=== PATIENT | female | born 1975 | race Caucasian/White ===

== ENCOUNTER 2020-01-18 08:39 | Emergency (ER) | payer OTHER ==
--- OUTSIDE RECORDS SUMMARY | 2020-01-18 08:43 | XMS REPORT | Clinical Summary ---
:1975 Author Organization Formerly [facility] Address [address] [place] [address] Care Team Providers Name Role Phone Aliza Torres MD Primary Care Provider Allergies Active Allergy Reactions Severity Noted Date Comments Nsaids (Non-Steroidal Anti-Inflammatory Anaphylaxis High 0 11/11/2019 Drug) Medications Medication Sig Dispensed Refills Start Date End Date Status omeprazole Take 20 mg by 0 Activ e (PRILOSEC) 20 MG mouth 2 (two) capsule times daily. fexofenadine Take 180 mg by 0 Ac tive (JD) 180 MG mouth daily. tablet famotidine-calcium Take 1 tablet 0 Active carbonate-magnesiu by mouth daily m hydroxide as needed. (PEPCID COMPLETE) 10-800-165 mg chew tab multivit,Ca,iron,m Take by mouth. 0 Active in/FA/nll577 (DAILY ENERGY ORAL) acetaminophen-code Take 1 tablet 0 02 Discontinued ine (TYLENOL #3) by mouth every 0 300-30 mg per 4 (four) hours tablet as needed for Pain. naproxen (MIDOL, Take 220 mg by 0 11/16/19 2 Discontinued NAPROXEN,) 220 MG mouth 2 (two) 0 tablet times daily with breakfast and dinner. docusate sodium Take 1 capsule 20 capsule 0 11/16/2019 02 (COLACE) 100 MG (100 mg total) 0 capsule by mouth 2 (two) times daily for 10 days. HYDROcodone-acetam Take 1 tablet 30 tablet 0 11/16/2019 inophen (NORCO by mouth every 0 5-325) 5-325 mg 4 (four) hours per tablet as needed for Pain for up to 10 days. Max Daily Amount: 6 tablets ondansetron Take 1 tablet 30 tablet 0 11/16/2019 Exp ired (ZOFRAN) 4 MG (4 mg total) by 0 tablet mouth 4 (four) times daily as needed for Nausea for up to 7 days. Active Problems Problem Noted Date Pelvic and perineal pain 11/13/2019 Intra-abdominal and pelvic swelling, mass and lump, un specified site 11/13/2019 S/P ovarian cystectomy 11/13/2019 Comments Yes Encounters Date Type Specialty Care Team Description 11/14/2019 Anesthesia Event Pre-Admission Lawanda Ojeda MD 11/13/2019 Anesthesia Event Carmen Ojeda MD 11/13/2019 Surgery Wes Oliver OOPHORECTOMY MD Lauren 11/13/2019 - Hospital Encounter Wes Oliver S/P ovari an 11/16/2019 MD Lauren cystectomy (Gisselle burrows Dx) 11/13/2019 Travel 11/11/2019 Hospital Encounter Pre-Admission Wes Oliver Testing MD Lauren after 01/17/2019 Social History Tobacco Use Types Packs/Day Years Used Date Former Smoker Smokeless Tobacco: Never Used Comments: quit 2009 Alcohol Use Drinks/Week oz/Week Comments Yes occasional Alcohol Habits Answer Date Recorded How often do you have a drink containing alcohol? Never 11/11/2019 How many drinks containing alcohol do you have on a typical Not asked day when you are drinking? How often do you have six or more drinks on one occasion? No t asked Comments Yes Sex Assigned at Date Recorded Not on file Job Start Date Occupation Industry Not on file Not on file Not on file Travel History Travel Start Travel End No recent travel history available. Last Filed Vital Signs Vital Sign Reading Time Taken Blood Pressure 105/64 11/16/2019 7:38 AM CDT Pulse 78 11/16/2019 7:38 AM CDT Temperature 36.8 C (98.2 F) 11/16/2019 7:38 AM CDT Respiratory Rate 18 11/16/2019 7:38 AM CDT Oxygen Saturation 98% 11/16/2019 7:38 AM CDT Inhaled Oxygen Concentration - - Weight 67.1 kg (148 lb) 11/13/2019 10:52 AM CDT Height 160 cm (5' 3") 11/13/2019 10:52 AM CDT Body Mass Index 26.22 11/13/2019 10:52 AM CDT Plan of Treatment Not on file Procedures Procedure Name Priority Date/Time Associated Comments Diagnosis REPORT OF PROCEDURE - 11/18/2019 1:50 ENDOSCOPY SCAN PM CDT CT SINUS WITHOUT IV Routine 11/15/2019 5:47 Resu lts for this CONTRAST PM CDT procedure are i n the results section. MR BRAIN WITHOUT IV Routine 11/15/2019 11:39 Resu lts for this CONTRAST AM CDT procedure are i n the results section. MRA HEAD WITHOUT IV Routine 11/15/2019 11:39 Resu lts for this CONTRAST AM CDT procedure are i n the results section. CBC W/PLT COUNT & Routine 11/15/2019 8:09 Result s for this AUTO DIFFERENTIAL AM CDT procedure are in the results section. COMPREHENSIVE Routine 11/15/2019 8:09 Results fo r this METABOLIC PANEL AM CDT procedure ar e in the results section. CBC W/PLT COUNT & Routine 11/15/2019 8:09 Result s for this AUTO DIFFERENTIAL AM CDT procedure are in the results section. CT BRAIN WITHOUT IV STAT 11/14/2019 11:06 Resu lts for this CONTRAST PM CDT procedure are i n the results section. TRANSFUSION SERVICE 11/14/2019 5:52 REPORT - SCAN PM CDT CBC W/PLT COUNT & Routine 11/14/2019 5:48 Result s for this AUTO DIFFERENTIAL AM CDT procedure are in the results section. ELECTROLYTE PANEL Routine 11/14/2019 5:48 Result s for this AM CDT procedure are i n the results section. CBC W/PLT COUNT & Routine 11/14/2019 5:48 Result s for this AUTO DIFFERENTIAL AM CDT procedure are in the results section. CYTOLOGY AP Routine 11/13/2019 1:52 Results for this PM CDT procedure are i n the results section. TISSUE EXAM AP Routine 11/13/2019 1:41 Results for this PM CDT procedure are i n the results section. OOPHORECTOMY 11/13/2019 12:30 Intra-abdominal and PM CDT pelvic swelling, mass and lump, unspecified site Pelvic and perineal pain ABORH, MANUAL Routine 11/13/2019 10:41 Results fo r this AM CDT procedure are i n the results section. HCG, SERUM, STAT 11/13/2019 10:41 Results for this QUALITATIVE AM CDT procedure are i n the results section. TRANSFUSION SERVICE 11/12/2019 5:54 REPORT - SCAN PM CDT URINALYSIS WITHOUT Routine 11/11/2019 3:08 Resul ts for this MICROSCOPIC PM CDT procedure are i n the results section. XR CHEST 2 VIEWS Routine 11/11/2019 3:05 Results for this PM CDT procedure are i n the results section. ECG 12-LEAD Routine 11/11/2019 3:00 Results for this PM CDT procedure are i n the results section. TYPE AND SCREEN, Routine 11/11/2019 2:55 Results for this AUTOMATED PM CDT procedure are i n the results section. CBC (HEMOGRAM ONLY) Routine 11/11/2019 2:55 Resu lts for this PM CDT procedure are i n the results section. COMPREHENSIVE Routine 11/11/2019 2:55 Results fo r this METABOLIC PANEL PM CDT procedure ar e in the results section. after 01/17/2019 Results EKG-SCANNED (11/18/2019 1:50 PM CDT) Narrative Performed At This result has an attachment that is no t available. CT sinus without iv contrast (11/15/2019 5:47 PM CDT) Specimen Narrative Performed At FINAL REPORT [facility] EXAM: CT SINUS WITHOUT CONTRAST INDICATION: Unlisted Indication - see co mments TECHNIQUE: Axial CT images are obtained through the paranasal sinuses without intravenous contrast. Coronal an d sagittal reformatted images are provided. DOSE REDUCTION: Dose modulation, iterati ve reconstruction, and/or weight-based adjustment of the mA/kV was utilized to reduce the radiation dose to as low as reasonably a chievable. COMPARISON: None FINDINGS: RIGHT PARANASAL SINUSES: Maxillary sinus is clear. The ostium, in fundibulum, and hiatus semilunaris are clear. The middle meatus is clear.There is opacification of a single anterior ethmo id air cell. The frontal sinus and frontal recess are clear. The posterior ethmoid air cells, sphenoi d chamber and sphenoid ostium are clear. LEFT PARANASAL SINUSES: There is mild mucosal thickening within the maxillary sinus. There is no air-fluid level. The ostium, infundib ulum, and hiatus semilunaris are clear. The middle meatus is clear. The anterior ethmoid air cells are well pneumatized. The frontal sinus and frontal recess are clear. The posterior ethmoid air cells, sphenoi d chamber and sphenoid ostium are clear. Coronal reformatted images demonstrate i ntact appearance of the cribriform plate, fovea ethmoidalis, and anterior skull base. There are bilateral pneumatized middle t urbinates The nasal septum is intact, deviated to the right but without mucosal contact with the inferior turbinate. The re is a 3 mm leftward spur along the inferior nasal septum. The mastoid air cells and middle ear cav ities are clear. Visualized intracranial contents are unr emarkable. Orbits are intact. Temporomandibular joints are normal. IMPRESSION: No evidence of sinusitis. Signed: Luisito Carvalho MD Report Verified Date/Time:11/15/2019 20:07:58 Procedure Note Interface, External Ris In - 11/15/2019 8:11 PM CDT FINAL REPORT EXAM: CT SINUS WITHOUT CONTRAST INDICATION: Unlisted Indication - see co mments TECHNIQUE: Axial CT images are obtained through the paranasal sinuses without intravenous contrast. Coronal an d sagittal reformatted images are provided. DOSE REDUCTION: Dose modulation, iterati ve reconstruction, and/or weight-based adjustment of the mA/kV was utilized to reduce the radiation dose to as low as reasonably a chievable. COMPARISON: None FINDINGS: RIGHT PARANASAL SINUSES: Maxillary sinus is clear. The ostium, in fundibulum, and hiatus semilunaris are clear. The middle meatus is clear. There is opacification of a single anterior ethmo id air cell. The frontal sinus and frontal recess are clear. The posterior ethmoid air cells, sphenoi d chamber and sphenoid ostium are clear. LEFT PARANASAL SINUSES: There is mild mucosal thickening within the maxillary sinus. There is no air-fluid level. The ostium, infundib ulum, and hiatus semilunaris are clear. The middle meatus is clear. The anterior ethmoid air cells are well pneumatized. The frontal sinus and frontal recess are clear. The posterior ethmoid air cells, sphenoi d chamber and sphenoid ostium are clear. Coronal reformatted images demonstrate i ntact appearance of the cribriform plate, fovea ethmoidalis, and anterior skull base. There are bilateral pneumatized middle t urbinates The nasal septum is intact, deviated to the right but without mucosal contact with the inferior turbinate. The re is a 3 mm leftward spur along the inferior nasal septum. The mastoid air cells and middle ear cav ities are clear. Visualized intracranial contents are unr emarkable. Orbits are intact. Temporomandibular joints are normal. IMPRESSION: No evidence of sinusitis. Signed: Luisito Carvalho MD Report Verified Date/Time: 11/15/2019 2 0:07:58 Performing Organization Address City/State/Zipcode Phone Number [facility] MR brain without IV contrast (11/15/2019 11:39 AM CDT) Specimen Narrative Performed At FINAL REPORT [facility] MR, BRAIN, WITHOUT CONTRAST, MR, MRA, BR AIN, WITHOUT CONTRAST INDICATION: Headache, acute, normal neur o exam headache MRI and MRA brain without contr ast please TECHNIQUE: Multiplanar, multisequence MR images of the brain.3-D time of flight MRA of the cranial and ce rvical circulation. 2-D time of flight MRA of the neck. 3D MIP angiog raphic post-processing was performed. Stenosis evaluation utilized NASCET criteria. COMPARISON: Noncontrast brain CT of the same date FINDINGS: MRI BRAIN: Brain parenchyma is normal in morphology . Midline structures are normally developed. No restricted diffus ion to suggest recent ischemic insult. No abnormal susceptibil ity. No hydrocephalus. Orbits are within normal limits. No obstructive paranasal sinus disease. Additional findings: None. MRA BRAIN: Internal carotid arteries: Normal flow r elated enhancementwithout flow-limiting stenosis Middle cerebral arteries: Normal flow re lated enhancement within the bilateral MCA M1-M2 segments without shane w limiting stenosis Anterior cerebral arteries: Normal flow- related enhancement within the bilateral TAMMY A1-A2 segments without flow limiting stenosis Basilar system: Normal flow-related enha ncement within the bilateral V4 segments and the basilar arterywi thout flow-limiting stenosis Posterior cerebral arteries: Normal flow -related enhancement within the bilateral PHARMACY ORDER ENTRY TECHNICIAN P1-P2 segmentswith out flow-limiting stenosis Additional findings: None. IMPRESSION: No acute ischemia or parenchymal hemorrh age. No flow limiting stenosis in the major b ranch vessels of the cranial circulation. Signed: Elder Martin MD Report Verified Date/Time:11/15/2019 11:50:26 Reading Location: [facility] [address] [place] [address] Room Procedure Note Interface, External Ris In - 11/15/2019 11:52 AM CDT FINAL REPORT MR, BRAIN, WITHOUT CONTRAST, MR, MRA, BR AIN, WITHOUT CONTRAST INDICATION: Headache, acute, normal neur o exam headache MRI and MRA brain without contr ast please TECHNIQUE: Multiplanar, multisequence MR images of the brain. 3-D time of flight MRA of the cranial and ce rvical circulation. 2-D time of flight MRA of the neck. 3D MIP angiog raphic post-processing was performed. Stenosis evaluation utilized NASCET criteria. COMPARISON: Noncontrast brain CT of the same date FINDINGS: MRI BRAIN: Brain parenchyma is normal in morphology . Midline structures are normally developed. No restricted diffus ion to suggest recent ischemic insult. No abnormal susceptibil ity. No hydrocephalus. Orbits are within normal limits. No obstructive paranasal sinus disease. Additional findings: None. MRA BRAIN: Internal carotid arteries: Normal flow r elated enhancement without flow-limiting stenosis Middle cerebral arteries: Normal flow re lated enhancement within the bilateral MCA M1-M2 segments without shane w limiting stenosis Anterior cerebral arteries: Normal flow- related enhancement within the bilateral TAMMY A1-A2 segments without flow limiting stenosis Basilar system: Normal flow-related enha ncement within the bilateral V4 segments and the basilar artery with out flow-limiting stenosis Posterior cerebral arteries: Normal flow -related enhancement within the bilateral PHARMACY ORDER ENTRY TECHNICIAN P1-P2 segments withou t flow-limiting stenosis Additional findings: None. IMPRESSION: No acute ischemia or parenchymal hemorrh age. No flow limiting stenosis in the major b ranch vessels of the cranial circulation. Signed: Elder Martin MD Report Verified Date/Time: 11/15/2019 1 1:50:26 Reading Location: [facility] [address] [place] [address] Room Performing Organization Address City/State/Zipcode Phone Number [facility] MRA head without IV contrast (11/15/2019 11:39 AM CDT) Specimen Narrative Performed At FINAL REPORT [facility] MR, BRAIN, WITHOUT CONTRAST, MR, MRA, BR AIN, WITHOUT CONTRAST INDICATION: Headache, acute, normal neur o exam headache MRI and MRA brain without contr ast please TECHNIQUE: Multiplanar, multisequence MR images of the brain.3-D time of flight MRA of the cranial and ce rvical circulation. 2-D time of flight MRA of the neck. 3D MIP angiog raphic post-processing was performed. Stenosis evaluation utilized NASCET criteria. COMPARISON: Noncontrast brain CT of the same date FINDINGS: MRI BRAIN: Brain parenchyma is normal in morphology . Midline structures are normally developed. No restricted diffus ion to suggest recent ischemic insult. No abnormal susceptibil ity. No hydrocephalus. Orbits are within normal limits. No obstructive paranasal sinus disease. Additional findings: None. MRA BRAIN: Internal carotid arteries: Normal flow r elated enhancementwithout flow-limiting stenosis Middle cerebral arteries: Normal flow re lated enhancement within the bilateral MCA M1-M2 segments without shane w limiting stenosis Anterior cerebral arteries: Normal flow- related enhancement within the bilateral TAMMY A1-A2 segments without flow limiting stenosis Basilar system: Normal flow-related enha ncement within the bilateral V4 segments and the basilar arterywi thout flow-limiting stenosis Posterior cerebral arteries: Normal flow -related enhancement within the bilateral PHARMACY ORDER ENTRY TECHNICIAN P1-P2 segmentswith out flow-limiting stenosis Additional findings: None. IMPRESSION: No acute ischemia or parenchymal hemorrh age. No flow limiting stenosis in the major b ranch vessels of the cranial circulation. Signed: Elder Martin MD Report Verified Date/Time:11/15/2019 11:50:26 Reading Location: [address] Procedure Note Interface, External Ris In - 11/15/2019 11:52 AM CDT FINAL REPORT MR, BRAIN, WITHOUT CONTRAST, MR, MRA, BR AIN, WITHOUT CONTRAST INDICATION: Headache, acute, normal neur o exam headache MRI and MRA brain without contr ast please TECHNIQUE: Multiplanar, multisequence MR images of the brain. 3-D time of flight MRA of the cranial and ce rvical circulation. 2-D time of flight MRA of the neck. 3D MIP angiog raphic post-processing was performed. Stenosis evaluation utilized NASCET criteria. COMPARISON: Noncontrast brain CT of the same date FINDINGS: MRI BRAIN: Brain parenchyma is normal in morphology . Midline structures are normally developed. No restricted diffus ion to suggest recent ischemic insult. No abnormal susceptibil ity. No hydrocephalus. Orbits are within normal limits. No obstructive paranasal sinus disease. Additional findings: None. MRA BRAIN: Internal carotid arteries: Normal flow r elated enhancement without flow-limiting stenosis Middle cerebral arteries: Normal flow re lated enhancement within the bilateral MCA M1-M2 segments without shane w limiting stenosis Anterior cerebral arteries: Normal flow- related enhancement within the bilateral TAMMY A1-A2 segments without flow limiting stenosis Basilar system: Normal flow-related enha ncement within the bilateral V4 segments and the basilar artery with out flow-limiting stenosis Posterior cerebral arteries: Normal flow -related enhancement within the bilateral PHARMACY ORDER ENTRY TECHNICIAN P1-P2 segments withou t flow-limiting stenosis Additional findings: None. IMPRESSION: No acute ischemia or parenchymal hemorrh age. No flow limiting stenosis in the major b ranch vessels of the cranial circulation. Signed: Elder Martin MD Report Verified Date/Time: 11/15/2019 1 1:50:26 Reading Location: [facility] [address] [facility] Performing Organization Address City/State/Zipcode Phone Number [facility] CBC with platelet count + automated diff (11/15/2019 8:09 AM CDT)Only the most recent of2 resultswithin the time period is included. WBC 10.2 (H) 4.0 - 10.0 K/L [facility] RBC 3.60 (L) 4.00 - 5.00 M/L [facility] Hemoglobin 11.7 (L) 12.0 - 15.5 GM/DL [facility] Hematocrit 35.6 (L) 36.0 - 46.0 % [facility] MCV 98.9 82.0 - 99.0 fL [facility] MCH 32.5 27.0 - 33.0 pg [facility] MCHC 32.9 32.0 - 36.0 GM/DL [facility] RDW 14.5 12.0 - 15.0 % [facility] Platelets 266 150 - 430 K/CU MM [facility] MPV 9.1 6.0 - 11.5 fL [facility] nRBC 0 0 - 0 /100 WBC [facility] % Neutros 80 % [facility] % Lymphs 11 % [facility] % Monos 8 % [facility] % Eos 0 % [facility] % Baso 0 % [facility] # Neutros 8.16 (H) 1.80 - 8.00 K/L [facility] # Lymphs 1.15 (L) 1.48 - 4.50 K/L [facility] # Monos 0.77 0.00 - 1.30 K/L [facility] # Eos 0.01 0.00 - 0.50 K/L [facility] # Baso 0.03 0.00 - 0.20 K/L [facility] Immature Granulocytes-Relative 0 0 - 0 % [facility] Specimen Blood Performing Organization Address City/State/Zipcode Phone Number [facility] [place], [place] [id number] [facility] [place], [place] [id number] [phone] Comprehensive metabolic panel (11/15/2019 8:09 AM CDT)Only the most recent of2 resultswithin the time period is included. Protein, Total 6.4 6.0 - 8.5 gm/dL [facility] Albumin 3.7 3.5 - 5.0 g/dL [facility] Alkaline Phosphatase 51 30 - 115 U/L [facility] Total Bilirubin 0.4 0.1 - 1.2 mg/dL [facility] Sodium 135 135 - 148 meq/L [facility] Potassium 3.5 (L) 3.6 - 5.5 meq/L [facility] Chloride 99 98 - 106 meq/L [facility] CO2 27 20 - 29 meq/L [facility] BUN 5 (L) 10 - 26 mg/dL [facility] Creatinine 0.66 0.50 - 1.20 mg/dL [facility] Glucose 144 (H) 70 - 110 mg/dL [facility] Calcium 8.5 8.5 - 10.5 mg/dL [facility] AST 18 5 - 40 U/L [facility] ALT 12 5 - 50 U/L [facility] EGFR 97Comment: ESTIMATED GFR IS mL/min/1.73 sq m [facility] NOT ACCURATE CREATININE CLEARANCE IN PREDICTING GLOMERULAR FILTRATION RATE. ESTIMATED GFR IS NOT APPLICABLE FOR DIALYSIS PATIENTS. Specimen Blood Narrative Performed At [employer] Supervisor ID - THOR [facility] Performing Organization Address City/State/Zipcode Phone Number [facility] [place] [address] [facility] [place] [address] [phone] CT brain without IV contrast (11/14/2019 11:06 PM CDT) Specimen Narrative Performed At FINAL REPORT [facility] CLINICAL HISTORY: Headache. COMPARISON: None Multiple axial images of the brain were performed without IV contrast. This exam was performed according to our departmental dose-optimization program, which include s automated exposure control, adjustment of the mA and/or kV according to patient size and/or use of the iterative reconstruction techniqu e. The examination is slightly limited by streak artifact from bilateral earrings. Intracranial hemorrhage: None. Brain parenchyma: No CT evidence of acut e ischemia. The thao-white differentiation is maintained. Ventricles, sulci and basal cisterns: No rmal for age. Extra-axial spaces: Normal. Midline shift: None. Visualized vasculature: Normal. Cranium: No significant findings. Skullbase: No significant findings. Paranasal sinuses: No significant findin gs. IMPRESSION: No definite acute intracranial abnormali ty. There is no mass lesion, intracranial hemorrhage or CT evidence o f acute stroke. Please note that CT is insensitive in th e detection of acute ischemia. Signed: Alli Sharma MD Report Verified Date/Time:11/14/2019 23:20:39 Procedure Note Interface, External Ris In - 11/14/2019 11:22 PM CDT FINAL REPORT CLINICAL HISTORY: Headache. COMPARISON: None Multiple axial images of the brain were performed without IV contrast. This exam was performed according to our departmental dose-optimization program, which include s automated exposure control, adjustment of the mA and/or kV according to patient size and/or use of the iterative reconstruction techniqu e. The examination is slightly limited by streak artifact from bilateral earrings. Intracranial hemorrhage: None. Brain parenchyma: No CT evidence of acut e ischemia. The thao-white differentiation is maintained. Ventricles, sulci and basal cisterns: No rmal for age. Extra-axial spaces: Normal. Midline shift: None. Visualized vasculature: Normal. Cranium: No significant findings. Skullbase: No significant findings. Paranasal sinuses: No significant findin gs. IMPRESSION: No definite acute intracranial abnormali ty. There is no mass lesion, intracranial hemorrhage or CT evidence o f acute stroke. Please note that CT is insensitive in th e detection of acute ischemia. Signed: Alli Sharma MD Report Verified Date/Time: 11/14/2019 2 3:20:39 Performing Organization Address City/State/[facility] Cent[facility] Phone Number [facility] TRANSFUSION SERVICE REPORT - SCAN (11/14/2019 5:52 PM CDT)Only the most recent of2 resultswithin the time period is included. Narrative Performed At This result has an attachment that is no t available. Electrolytes (11/14/2019 5:48 AM CDT) Sodium 138 135 - 148 meq/L [facility] Potassium 4.3 3.6 - 5.5 meq/L [facility] Chloride 102 98 - 106 meq/L [facility] CO2 27 20 - 29 meq/L [facility] Specimen Blood Narrative Performed At [employer] Supervisor ID - [place] [facility] Performing Organization Address City/State/Zipcode Phone Number [facility] [place] [address] [facility] [address] Cytology (11/13/2019 1:52 PM CDT) Case Report Medical Cytology Report Case: [id number] [facility] Authorizing Provider:Wes GiffordLINCOLNollected: 11/13/2019 01:52 PM Ordering Location: [facility] Received:11/14/2019 11:18 AM SERVICES Specimen:Peritoneal Washings DIAGNOSIS PERITONEAL FLUID, INTRAOPERATIVE WASHINGS: [facility] - NEGATIVE FOR MALIGNANCY Signing Pathologist Direct Phone Line: CPT Code(s) 94270 [facility] GROSS DESCRIPTION Collected: 11/14/2019 [facility] Received: 11/14/2019 20 mL bloody fluid, fresh; 4 cytospins MICROSCOPIC DESCRIPTION Microscopic examination is [facility] performed and is incorporated in the diagnostic line. STATEMENT OF ADEQUACY Satisfactory [facility] Gross assessment was [facility] performed at [facility] Department of Pathology, [address] [place] [address], Technical component was [facility] performed at [facility] Department of Pathology, [address] [place] [id number], Professional component was [facility] performed at [facility] Department of Pathology, [address] [place] [address], Specimen Washings Performing Organization Address City/State/Zipcode Phone Number [facility] [place] [address] [facility] [place] [address] Tissue Exam (11/13/2019 1:41 PM CDT) Case Report Surgical Pathology Report Case: [id number] [facility] Authorizing Provider:Wes GiffordLINCOLNollected: 11/13/2019 01:41 PM Ordering Location: [facility]IE Received:11/13/2019 01:59 PM SERVICES Pathologist: Surya Rodríguez MD Specimen:Cyst, PELVI C CYST DIAGNOSIS A. LEFT OVARIAN CYST AND FALLOPIAN TUBE, SALPING O-OOPHORECTOMY: [facility] - OVARIAN SEROUS CYSTADENOMA - UNREMARKABLE FIMBRIATED FALLOPIAN TUBE Signing Pathologist Direct Phone Line: CPT Code(s) 97574, 03571, 53432 [facility] GROSS DESCRIPTION The paperwork, container, an d cassette are all labeled [id number]. [facility] The specimen is received in formalin in a single container labeled with the patient's name (PRABHAKAR) and medical record number. A. The specimen labeled "CYS T" consists of a 864 g, 14.5 x 13 x 8 cm ovary with an attached 3.8 x 0.5 cm portion of distal/fimbriated fallopian tube. The outside of the ovary is christianson-pink and smooth (ink ed black). The specimen is o pened to reveal a unilocular, smooth-walled, serous fluid-filled cysts. The cyst wall measures from 0.1 up to 1 [address] in greatest dimension. [address] Supervisor sections are submitted as follows: A1-2FS: Court Supervisor sections after frozen sec tion A3: Fallopian tube A4 14: Court Supervisor sections of cyst wall INTRAOPERATIVE CONSULTATION A. LEFT PELVIC CYST AND FA LLOPIAN TUBE, CYSTECTOMY AND LEFT DISTAL SALPINGECTOMY: [facility] - Unilocular cyst consistent with ovarian serous cystadenoma - Grossly unremarkable fimbriated fallopian tube - These findings were discus sed via telephone with Dr. Oliver at 2:28 PM on 11/13/2019 Surya Rodríguez MD MICROSCOPIC DESCRIPTION Microscopic examination is [facility] performed and is incorporated in the diagnostic line. Gross assessment was [facility] performed at [facility], Department of Pathology, [address] [place] [address], [facility] performed at [place], Department of Pathology, [address] [place] [address], Professional component was [facility] performed at [facility], Department of Pathology, [place] [address], Specimen Tissue Performing Organization Address [facility] Phone Number [facility] [address] [facility] [address] [phone] ABORH, manual (11/13/2019 10:41 AM CDT) ABO Grouping O [facility] Rh Factor POS [facility] Specimen Blood Performing Organization Address [facility] Phone Number [facility] [place] [address] [facility] hCG, serum, qualitative (11/13/2019 10:41 AM CDT) Preg Test, Serum Negative [facility] Specimen Blood Performing Organization Address [facility] Number [facility] [address] [facility] [address] [phone] Urinalysis without Microscopic (11/11/2019 3:08 PM CDT) Color, UA Yellow [facility] Clarity, UA Hazy [facility] Specific [place], UA 1.025 1.001 - 1.035 [facility] pH, UA 6.0 5.0 - 8.0 [facility] Protein, UA Negative Negative [facility] Glucose, UA Negative Negative [facility] Ketones, UA Negative Negative [facility] Bilirubin, UA Negative Negative [facility] Blood, UA Large (A) Negative [facility] Nitrite, UA Negative Negative [facility] Leukocytes, UA Negative Negative [facility] Urobilinogen, UA 0.2 0.2 - 1.0 mg/dL [facility] Specimen Source [facility] Specimen Urine Performing Organization Address [facility] Phone Number [facility] [address] [phone] [facility] [place] [address] XR chest 2 views (11/11/2019 3:05 PM CDT) Specimen Narrative Performed At FINAL REPORT [facility] Chest, two views History: Preoperative assessment Comparison: none Findings: Clear lungs.Normal size heart.No pleural effusion or pneumothorax. Impression: No significant findings in the chest Signed: Howard Hodge MD Report Verified Date/Time:11/11/2019 15:11:05 Reading Location: [facility] Diagnostic Imagin g Reading Room - [place] [address] Procedure Note Interface, External Ris In - 11/11/2019 3:13 PM CDT FINAL REPORT Chest, two views History: Preoperative assessment Comparison: none Findings: Clear lungs. Normal size heart. No ple ural effusion or pneumothorax. Impression: No significant findings in the chest Signed: Howard Hodge MD Report Verified Date/Time: 11/11/2019 1 5:11:05 Reading Location: [facility] [employer] g Reading Room - [place] [address] Performing Organization Address City/[facility] Phone Number [facility] Electrocardiogram, 12-lead (11/11/2019 3:00 PM CDT) Specimen Narrative Performed At Ventricular Rate 62 BPM GE MUSE Atrial Rate 62 BPM P-R Interval 162 ms QRS Duration 68 ms Q-T Interval 408 ms QTC Calculation(Bazett) 414 ms P [place] 63 degrees R [place] 31 degrees T [place] 55 degrees Normal sinus rhythm Normal ECG No previous ECGs available Confirmed by Kannan Kruse ([id number]) on 11/28/2019 7:10:4 9 PM Procedure Note Interface, External Ris In - 11/28/2019 7:11 PM CDT Ventricular Rate 62 BPM Atrial Rate 62 BPM P-R Interval 162 ms QRS Duration 68 ms Q-T Interval 408 ms QTC Calculation(Bazett) 414 ms P [place] 63 degrees R [place] 31 degrees T [place] 55 degrees Normal sinus rhythm Normal ECG No previous ECGs available Confirmed by Kannan Kruse ([id number]) on 7:10:49 PM Performing Organization Address [facility] Phone Number [facility] Type and screen, automated (11/11/2019 2:55 PM CDT) ABO/RH AUTOMATED (BEAKER) O POSITIVE [facility] Ab Scrn NEGATIVE [facility] Specimen Blood Performing Organization Address [facility] Phone Number [facility] [address] [place] [address] [facility] CBC (Hemogram only) (11/11/2019 2:55 PM CDT) WBC 9.2 4.0 - 10.0 K/L [facility] RBC 3.82 (L) 4.00 - 5.00 M/L [facility] Hemoglobin 12.4 12.0 - 15.5 GM/DL [facility] Hematocrit 37.8 36.0 - 46.0 % [facility] MCV 99.0 82.0 - 99.0 fL [facility] MCH 32.5 27.0 - 33.0 pg [facility] MCHC 32.8 32.0 - 36.0 GM/DL [facility] RDW 14.3 12.0 - 15.0 % [facility] Platelets 314 150 - 430 K/CU MM [facility] MPV 9.0 6.0 - 11.5 fL [facility] nRBC 0 0 - 0 /100 WBC [facility] Specimen Blood Performing Organization Address [facility] Phone Number [facility] [address] [facility] [place] [address] [phone] after 01/17/2019 Insurance Payer Benefit Plan / Group Subscriber ID Type Phone A boaz LORA xxxxxxxxxxx Advance Directives For more information, please contact:[place] [address] [address] [place], [place] [phone] Code Status Date Activated Date Inactivated Comments Full Code 11/13/2019 10:19 AM 11/16/2019 6:17 PM This code status was determined by: Patient
--- OUTSIDE RECORDS SUMMARY | 2020-01-18 08:45 | XMS REPORT | Continuity of Care Document ---
:1975 Author Organization [facility] t Address [address] [place] [address] Care Team Providers Name Role Phone Fariha Rao MD, A Primary Care Physician Lauren Tran MD Attending Clinician Isiah Ojeda MD Attending Clinician LAUREN TRAN Attending Clinician Unavailable LAUREN TRAN Admitting Clinician Unavailable Payers Payer Name Policy Policy Number Effective Expiration Source Type Date Date AMBETTERAMBETTER xxxxxxxxxxx [facility] SU[facility]IOR[facility]xxx [facility] Problems Condition Condition Condition Status Onset Resolution Last Treating Co mments Source Name Details Category Date Date Treatment Clinician Date Pelvic and Pelvic and Disease Active [facility] perineal perineal 4- [facility] - pain pain 00:00: Medical Center Intra-abdo Intra-abdo Disease Active [address] nakia and nakia and 11-12 Luke s - pelvic pelvic 00:00: Medical swelling, swelling, 00 Cent er mass and mass and lump, lump, unspecifie unspecifie d site d site S/P S/P Disease Active [facility] ovarian ovarian - [facility] - cystectomy cystectomy 00:00: Ak dical 00 [place] Allergies, Adverse Reactions, Alerts Allergy Allergy Status Severity Reaction(s) Onset Inactive Treating Comm ents Source Name Type Date Date Clinician Nsaids Propensi Active Anaphylaxis [facility] (Non-Blas ty to 3-30 [facility] - roidal adverse 00:00: Medical Anti-Inf reaction 00 Center lammator s y Drug) ibuprofe DA Active U [facility]ANC n 3-26 00:00: 00 Social History Social Habit Start Date Stop Date Quantity Comments Source History [facility] Alcohol Std Drinks Medica [facility] History [facility] Alcohol Binge Medical [facility] ter ASSERTION [facility] Sex Assigned At [facility] Tobacco Comment 2019-11-13 2019-11-13 quit 2009 [facility] - 00:00:00 00:00:00 [facility] Alcohol Comment 2019-11-13 2019-11-13 occasional [facility] 00:00:00 00:00:00 [facility] History SDOH 2019-11-11 2019-11-11 1 [facility] Alcohol Frequency 00:00:00 00:00:00 [facility] Smoking Status Start Date Stop Date Source Former smoker 2019-11-14 00:00:00 2019-11-14 00:00:00 [facility] Medications Ordered Filled Start Stop Current Ordering Indication Dosage Frequency Signature Comments Components Source Medication Medication Date Date Medication? Clinician (SIG) Name Name acetaminoph 2019- No 1{tbl} Take [address] en-codeine 4- 04-04 tablet by Anmol es - (TYLENOL 15:47: 00:00 mouth Medical #3) 300-30 03 :00 every 4 Center mg per (four) tablet hours as needed for Pain. naproxen 2019- No 220mg Take [address] (MIDOL, 4- 04-04 mg by Justa - NAPROXEN,) 15:47: 00:00 mouth 2 Med ical 220 MG 03 :00 (two) Center tablet times daily with breakfast and dinner. docusate 2019- No 100mg Q.5D Take 1 [facility] t sodium 4-11-25 capsule [facility] - (COLACE) 00:00: 23:59 (100 mg Medic al 100 MG 00 :00 total) by Center capsule mouth 2 (two) times daily for 10 days. HYDROcodone 2019-0 2020- No 1{tbl} Take [address] -acetaminop -11-25 tablet by Julia caldwell (NORCO 00:00: 23:59 mouth Medic al 5-325) 00 :00 every 4 Center 5-325 mg (four) per tablet hours as needed for Pain for up to 10 days. Max Daily Amount: 6 tablets ondansetron 2019-0 2020- No 4mg Take [address] (ZOFRAN) 4 11-15- tablet (4 Anmol es - MG tablet 00:00: 23:59 mg total) Me dical 00 :00 by mouth 4 Center (four) times daily as needed for Nausea for up to 7 days. multivit,Ca 2019-0 Yes Take by [facility] ,iron,min/F 4-01 mouth. Juliakes - A/ykk570 10:28: Medical (DAILY 13 Center ENERGY ORAL) famotidine- 2019-0 Yes 1{tbl} Take [address] calcium 3-30 tablet by Just[facility] - carbonate-m 14:57: mouth Medic al agnesium 46 daily as Center hydroxide needed. (PEPCID COMPLETE) 10-800-165 mg chew tab omeprazole 2019-0 Yes 20mg Q.5D Take [address] (PRILOSEC) 3-30 by mouth 2 Anmol es - 20 MG 14:42: (two) Medical capsule 59 times Center daily. fexofenadin 2020-0 Yes 180mg QD Take [address] e (JD) 3-30 mg by [facility] - 180 MG 14:42: mouth Medical tablet 59 daily. [place] Vital Signs Vital Name Observation Time Observation Value Comments Source Systolic blood 2019-11-16 07:38:00 105 mm[Hg] [facility] pressure [facility] Diastolic blood 2019-11-16 07:38:00 64 mm[Hg] [facility] Heart rate 2019-11-16 07:38:00 78 /min [facility] L u[facility] - Medical [place] Body temperature 2019-11-16 07:38:00 36.78 Fadia [facility] Respiratory rate 2019-11-16 07:38:00 18 /min [facility] Oxygen saturation in 2019-11-16 07:38:00 98 /min [facility] Arterial blood by Medical Ce nter Pulse oximetry Body height 2019-11-13 10:52:00 160 cm [facility] Body weight Measured 2019-11-13 10:52:00 67.132 kg [facility] BMI 2019-11-13 10:52:00 26.22 kg/m2 [facility] Procedures Procedure Date / Time Performed Performing Clinician [facility] e REPORT OF PROCEDURE - 2019-11-18 13:50:17 Provider, Janay [facility] - ENDOSCOPY SCAN Scanning [facility] CT SINUS WITHOUT IV 2019-11-15 17:47:00 Sonu Mast [facility] MRA HEAD WITHOUT IV 2019-11-15 11:39:[address] [facility] MR BRAIN WITHOUT IV 2019-11-15 11:39:[address] [facility] COMPREHENSIVE METABOLIC 2019-11-15 08:09:00 Wes Tran [facility] CBC W/PLT COUNT & AUTO 2019-11-15 08:09:00 Wes Tran [facility] CT BRAIN WITHOUT IV 2019-11-14 23:06:[address] [facility] TRANSFUSION SERVICE 2019-11-14 17:52:43 Provider, Janay [facility] - REPORT - SCAN Scanning [facility] ELECTROLYTE PANEL 2019-11-14 05:48:00 Wes Tran [facility] CBC W/PLT COUNT & AUTO 2019-11-14 05:48:00 Wes Tran [facility] CYTOLOGY 2019-11-13 13:52:00 Wes Tran [facility] TISSUE EXAM 2019-11-13 13:41:00 Wes Tran [facility] OOPHORECTOMY 2019-11-13 12:30:[address] [facility] HCG, SERUM, QUALITATIVE 2019-11-13 10:41:00 Benito, [facility] ABORH, MANUAL 2019-11-13 10:41:00 Surya Rodríguez [facility] TRANSFUSION SERVICE 2019-11-12 17:54:04 Provider, Janay [facility] - REPORT - SCAN Scanning [facility] URINALYSIS WITHOUT 2019-11-11 15:08:00 Benito, Wes [facility] S t [facility] XR CHEST 2 VIEWS 2019-11-11 15:05:00 Benito, [facility] ECG 12-LEAD 2019-11-11 15:00:35 Benito, [facility] COMPREHENSIVE METABOLIC 2019-11-11 14:55:00 Benito, [facility] CBC (HEMOGRAM ONLY) 2019-11-11 14:55:00 Benito, [facility] TYPE AND SCREEN, 2019-11-11 14:55:00 Benito [facility] Results Test Description Test Time Test Comments Results Result Sour e Comments Electrocardiogra 2019-11-13 Interface, External Ris JOHN Shetty m, 12-lead 6 In - 11/28/2019 7:11 Anmol - 19:10:54 PM CDTVentricular Rate Me dical 62 BPMAtrial Rate 62 Cent er BPMP-R Interval 162 msQRS Duration 68 msQ-T Interval 408 msQTC Calculation(Bazett) 414 msP Seth 63 degreesR Seth 31 degreesT Seth 55 degreesNormal sinus rhythmNormal ECGNo previous ECGs availableConfirmed by Kannan Kruse ([id number]) on 11/28/2019 7:10:[address], SINUS, Anesthesia:-> FINAL REPORT PATIENT WITHOUT IV 3 None ID: [id number] EXAM: CT CONTRAST 20:07:00 SINUS WITHOUT CONTRAST INDICATION: Unlisted Indication - see comments TECHNIQUE: Axial CT images are obtained through the paranasal sinuses without intravenous contrast. Coronal and sagittal reformatted images are provided. DOSE REDUCTION: Dose modulation, iterative reconstruction, and/or weight-based adjustment of the mA/kV was utilized to reduce the radiation dose to as low as reasonably achievable. COMPARISON: None FINDINGS: RIGHT PARANASAL SINUSES: Maxillary sinus is clear. The ostium, infundibulum, and hiatus semilunaris are clear. The middle meatus is clear. There is opacification of a single anterior ethmoid air cell. The frontal sinus and frontal recess are clear. The posterior ethmoid air cells, sphenoid chamber and sphenoid ostium are clear. LEFT PARANASAL SINUSES: There is mild mucosal thickening within the maxillary sinus. There is no air-fluid level. The ostium, infundibulum, and hiatus semilunaris are clear. The middle meatus is clear. The anterior ethmoid air cells are well pneumatized. The frontal sinus and frontal recess are clear. The posterior ethmoid air cells, sphenoid chamber and sphenoid ostium are clear. Coronal reformatted images demonstrate intact appearance of the cribriform plate, fovea ethmoidalis, and anterior skull base. There are bilateral pneumatized middle turbinates The nasal septum is intact, deviated to the right but without mucosal contact with the inferior turbinate. There is a 3 mm leftward spur along the inferior nasal septum. The mastoid air cells and middle ear cavities are clear. Visualized intracranial contents are unremarkable. Orbits are intact. Temporomandibular joints are normal. IMPRESSION: No evidence of sinusitis. Signed: Luisito Carvalho MDReport Verified Date/Time: 11/15/2019 20:07:58 sinus without Interface, External Ris [facility] iv contrast 3 In - 11/15/2019 8:11 Julia kes - 20:07:00 PM CDTFINAL REPORT Medica l nter EXAM: CT SINUS WITHOUT CONTRAST INDICATION: Unlisted Indication - see comments TECHNIQUE: Axial CT images are obtained through the paranasal sinuses without intravenous contrast. Coronal and sagittal reformatted images are provided. DOSE REDUCTION: Dose modulation, iterative reconstruction, and/or weight-based adjustment of the mA/kV was utilized to reduce the radiation dose to as low as reasonably achievable. COMPARISON: None FINDINGS: RIGHT PARANASAL SINUSES: Maxillary sinus is clear. The ostium, infundibulum, and hiatus semilunaris are clear. The middle meatus is clear. There is opacification of a single anterior ethmoid air cell. The frontal sinus and frontal recess are clear. The posterior ethmoid air cells, sphenoid chamber and sphenoid ostium are clear. LEFT PARANASAL SINUSES: There is mild mucosal thickening within the maxillary sinus. There is no air-fluid level. The ostium, infundibulum, and hiatus semilunaris are clear. The middle meatus is clear. The anterior ethmoid air cells are well pneumatized. The frontal sinus and frontal recess are clear. The posterior ethmoid air cells, sphenoid chamber and sphenoid ostium are clear. Coronal reformatted images demonstrate intact appearance of the cribriform plate, fovea ethmoidalis, and anterior skull base. There are bilateral pneumatized middle turbinates The nasal septum is intact, deviated to the right but without mucosal contact with the inferior turbinate. There is a 3 mm leftward spur along the inferior nasal septum. The mastoid air cells and middle ear cavities are clear. Visualized intracranial contents are unremarkable. Orbits are intact. Temporomandibular joints are normal. IMPRESSION: No evidence of sinusitis. Signed: Luisito Carvalho Verified Date/Time: 11/15/2019 20:07:58 Cytology 2019-11-15 17:17:00 Test Item Value Reference Range Interpretation Comme nts Case Report (test code = 104) Medical Cytology Report Case: [id number] Authorizing Provider: Wes Tran MD Collected: 11/13/2019 01:52 PM [facility] Received: 11/14/2019 11:18 AM SERVICES Specimen: Peritoneal Washings DIAGNOSIS (test code = 3220) i1vztPOpGBIfe6nvLTVfoNAtTiRhSxNvGgPfZo pc eQFrFZnevxGfHEuld5IeQ9LrRcWmKZcapbIrUGOp CywvrpfmXTZcYTX9mnScQJAhSGyxTYGfLKyhHd4n lCPkuFasVnCwMOOaf9yalkAHxgjwrGk7wRqpQ67x m7L8DhsfH3fmXVAsPYMlE4KiFS7oUYNeRaq8TJD4 CUB7OCHaRGQyU2WjJR4yITNsdKHyNMw6r9mdkVwv WVGqAFJ5u4fnYVawbwRgCN5gvc7uyLr1r0spwqAy YEMkSICycFXAPJPfR2ZslUlwRu2vcWt4lGwmPgtl TDG6Duo9JZ5wyu19jbr6cUpdOCKkqaexYlX5RXpy QDXsqfzrODj6DBsyUEQtfYkaOZghXIQpxzfbIZyj HFXzwTyiLHmoHEZgYyhcIDgaIKNnWUI7ZFztx742 MIY4WYaho6elu0ugvMXcHpw3DGTzYdQeZjutUKep w0Gsj9nlZRQuww3pIEE5rBRbfZyzk9H0mCRcVIYm vEPyviMzEOYaDeU4TTgdXE3fpe27DDXePLV3fp6i gMXtbEyqcaSufDVjVNymO4HrLEBwa200GPJvW1Al GWSvu5Z3kvFqKyOiLSMtuDM4teQ4BEJgACz4oKRq dcF0fjAxsLAgK1lxeB70EzNfjWYxK7XseW37XmHb yJStE3DcsT30UuGooOQsL0WanM20WdDztYDlPKXr yOXqUx2whTSfaLCjs2LekDRsTOzpH11gv077TMSr iaYzA2ivkHYuadmwmTDflmqyELhuxvJ5LSQkQHPr YWluXGYwXGZzMjBcbGFuZzEwMzNcaGljaFxmMFxk HeQbVLXrFPlbE3qmFfRkLwZrBKMQSOUXLQ9QRGUS XPVJSRoOJJPYDgCSEH2CMQVUYDvJPGLDXPPXVZ2N MmbuxBIwGY7sYyJWOGVUFgFwQo2BBC2ZRBhEYxFN S6lscERbnLmsrhTdCEnjl4KjDVlwNIXlFI4fkInn PPSmDS0cXOHwS3bxuU3shwc7NyMqSMQlMkT7YIAu sxY3Rwj9VFBeGNtpj1cib7SnCYVfQLb7yNzlAtNx GZMcg0kbivOeSjSxRARvLBFbCCGbwWSyB146b0li s7jzeuKnfIF6FVZxWMP4FJvgrqJfvnK7FDtqeYFg IfT3BMuswdNmZBxmjvMqjkQxAzf3EMHtL001BXL4 yAbxf1byRZH6GDTsCYGtOfWqNi1ayVPzU841CZIu PICPEMFcvUs3RHOadoDwljVusXULq481E531z7tn MOOwziUjwWpKcpovg1gmQ184EMOvjAMokpQwIlDa BWVkpLHtgAV8LTWlEU4syugpEVebHWulKZBpnvU5 FTHdsBNsW2PySFHcWF5rcijhPQA6XWbdMBSsGRW1 HzQeZTZen5Vmlmr6YdXhgh9esg34OER4j7LtuTlj TVP7QDC7NnVkMm3slFVuPRSrNS4tDsKhwDRtFXKg jj89wFjrUZmfIHA5GQOwwnAdm8Lmu2auQhSxttIj K8ejA5AvCMHfEWKmPSJuTbTipgDnz5Cto8QrxYFc kZe0q7wjBQLqLWLmvRzhd1ecQXE2GETtfALtM0rl tQ1qJSNlVZ6tbfsfe5vjXVxkKIjsKXNymOO6pvD0 UOFhcSNhC2NjcI3oAVOnXQuoBVQsnyi0SmGzJc0v dGVyeTcyMFxzYmtwYWdlXHBnbmNvbnRccGduZGVj XHBsYWluXHBsYWluXGYwXGZzMjRccWxcbGFuZzEw SvQrvInzsNjlLUzyOwGdGASdBEnpK6fkYiGtIzJv Ztm6ALDkgYKeXXIdEmi9RRTokPCzXZHCeRtfqE8a SCGnmIshgH8jhEK2HVRoscLxrVMZkV2wMVICeQ1i DnJ8ZhAbIyQ3BQBnNUuvdIMunV8= CPT Code(s) (test code = 3357) b8chtQFzJKIrwKWwDxUcNNPkCXGti6lgTPVy bGFu MeFwDbOyVlGjKyuovMYrZEViHcMpt9ofz039uTRq s7tqXHTnBgC5jSQzZKQmjSTwC698b4skw7icaeNy qDX8JIFfCXM3SXlxiyIwimR4GIsnoQQjLdB7HOjp moMzGSwtefPucrWdYcl0QJOeC366LDY3iTufl0uj NTM2AKFlBFKsIsMxMz5ekWCvZ944QJPnUMGNXLHe eUr0GENmsmSjprNkiXVWt417I284m8coZCJefoBy gZkGqfaix8gpE450ADFbaVKodaHkVvYxDOIitTOg xIF1LDUkZP8tigloOqDcFK6huddhWlSnYG4gifh8 TmBqHG5qwfjnJzWqWQjnPQSufipaELSdv3Hnadxs RG4jE9Rlg7X4hB1rzDZwPYKraHXsMqBcRNYriv1q uORtQRqlk3AmCIX6ddP7xJHpcCRqNIKtZC24Fjum l5TtYhvxIUW6ATNqrcTpi4Etw9slWqEhzuAmF1zp H8DbPVYiWLNyHXLkJmRaqdAov3Tjl3JfuBCgeFz7 u6pfSEKiHQYszFadt8xcHZR1FNMzO6C7mWBjq3en WWnrOKValSY1codvSZjeSBTsajI7owalQNxfVCUn aLH4xracKVzqGFBuGrE1rqniINifNSKrHSK5WGll f365MZT7VKqwJxmaDXbsJXWtnwKstjNnzQqzYDOz GBLgYSoqLOSzSUsiPIJtFLDpLxJgrNruqOlraF3p XqZoWePzAIbfUY2cWHSiE5trgMXhUZWgGQHhX9qt IbTbmB6rfCqzCJyhaqZuOGn4BWV9NTPvzb4= GROSS DESCRIPTION (test code = 3366) p2ysySMjHHQflQRxDfNqBWVwNGUup9 lcZGVmbGFu MlWnSmLkOxUeKeuldVNfVWPpBeTgv8wve202cEYv x6wcHSKeJhF5iOLrHUNiyOUlS152SPMvGLjud7dq l5HeGEQavMYzj2H4CQFIfbdmxJb7jCpxD37nr3C3 LeouF8bvTFZgPGKrV9OxOC7zVETyMpc2KLC0JNB6 PPXmLHWfP3KvAF4gJBZolVVuNAu5y6yygRrmCTAw WTI8i4otDHxaifMbKU7fog5pbYb4q6izzfEjCEIh HJJhgVRHDAVpP4XmuXisDp9byLw8lNrcQagdZDQ5 Waj6LM3dfo71hwn5tThsWADoyljzKnB0KFxtVTTn inskEVb2POacUZAwiKlqFBqtQBWkiqroGZedFIMl qCzeTTdzCAPuIfkhRGouSSRrUXI4QXosz023EIL2 NOajy8azt0gdoYQvZum9OVLiZpOkLinbVJahg7Sa c5cwNIKjrv2pLJS2pFNmzLere9R7sGNfJJKkfEPy zdOxONNhCsT2AGsfJA4snd26LGBuURV6gy3dvUJq vNyfhwAjdOOgGMkhU6GkCBGid500LNWlU8ZxGRVk j2G4mfEyWyTmKMOmsYO5slL9ONRuFNk0yIOravU2 twLrdHDmO8shqX60HiBljWYuS7DynF02VlJxdRKm Y6SucC20VlLcjGOgF9NnsP94GcVzzSNjGWDefLYq Go3okAGqvOZue9JxtPWyMZqoL79ee972GWXdvcXp S4racLYrjexmhIYskeftHLonutG8XDAdYKPyNTcz XGYxXGZzMjJcbGFuZzEwMzNcaGljaFxmMVxkYmNo DOSoHYrlE7qeWaLdOeUwCgYRt7baPQJ3WDM2BIZn Hj7tHNAcYGNwnuSHHLNvrRLwYMwwBQ9dPoFzLzLz gLOyLEJfvbQaIQIdZPRbuO3hPAzqGyx0cDNnBEBa MUVuCsY4MHQ7sN5sgLqgm8ctVAY9 MICROSCOPIC DESCRIPTION (test code = m7thcKGpYRAhrPQlTdDrRDNhUQHac2 [place] [address]) WsHcByYyWgBwJujgaNViVQKrGdEgm2xwk995eCJd f3pcRUTaCyJ2vDNrZLNbiGNpL436r0huc7nrgdVy sKG4PCXcYCD7OVnmvsJibvZ1GDnznBKtWiZ1AIdw ckJjKFysefSrrfLxZzf0NYKjT574NYV4jWkaa7ei WNT1MWSjFMEoNcEuGd6ziOYuH908TYWcEORSOCHw uMp4ZCBocxGnmnFfeKDEy694B918p2pdMBKvskGa cFvGtzxju3egY443NXAlbPFoouHdUnCaNZNuaPSr oNL5BFHbGR5pwctpRwSkFF3conuvAhIhFG3blbr5 BnChOS0amlpkBeWkVJpaOCXsbgrsSUUzq4Byewdo PO8rH8Cmp8I0iF6dpUDqUROpaBZkKfPvQWMrsx5p oMIpGWfdr5ZsGNG8eoU8yMAqvLGgCPEuDL56Liai a1RcXfrfKZY9UMUisdMqg7Pdo8hkCbTehmIqY4pv R6AmPGLzSFNnPKWnXyCqonElq4Unp9LyaHJlwJr1 m5buIWLeKNTviJrby1hxBPG2KRHoY2J0hYGyy9mm SBelJWOkeOM8wvdyLFhnWEIrkiL9tcwhJOyxJFBa jJM5jfwsDBenJJDyMlK6hddiCRkxNSHeWPP5NYik b218WIN0ATfqDmjgNJoqEIYffxJphaRxmJkqDXBm LFOsEJsiWNUqKBqgOUQoCJLwCzVbwJunpDbcdS2b JiSmGiBlFHxlVG5sSJXqS0lqhWVaJASeQYWiP3xh VuJovA3hqGweMSfgzfXxWS2gG7Hix1FwgNrqSYS0 WT5qxhN5dW7iEAhqAAFxppJkcj0kYFWzwrVfsIUp xS5dc2Czl4XxnNAnRNsrGJLyHIQlfSAfuw8ygEre IGxpbmUuXHBhcn0= STATEMENT OF ADEQUACY (test code = Satisfactory 2757) Gross assessment was performed at (test [facility], code = 2777) Department of Pathology, [place] [address], Technical component was performed at [facility], (test code = 2778) Department of Pathology, [place] [address], Professional component was performed at [facility], (test code = 2779) Department of Pathology, [place] [address], [facility] 17:17:00Medical Cytology Report Case: [id number] Aut horizing Provider: Wes Tran MD Collected: 11/13/2019 01:52 PM Ordering Location: [facility] Received: 11/14/2019 11:18 AM SERVICES Specimen: Peritoneal Washings PERITONEAL FLUID, INTRAOPERATIVE WASHINGS:- NEGATIVE FOR MALIGNANCY Signing Pathologist Direct Phone Line: [phone] signed by Surya Rodríguez MD on 11/15/2019 at 5:17 [id number]: 11/14/2019Received: 11/14/201920 mL bloody fluid, fresh; 4 cytospinsMicroscopic examination is performed and isincorporated in the diagnostic line.SatisfactoryECU [facility], Department of Pathology, [place] [address], OdECU Health Roanoke-Chowan [facility], Department of Pathology, [address] [place] [address], FbECU Health Roanoke-Chowan Hospital, Department of Pathology, [address] [place] [address], Rysorb [id number] 12:27:00 Test Item Value Reference Range Interpretation Comments Case Report (test code Surgical Pathology = 104) Report Case: [id number] Authorizing Provider: Wes Tran MD Collected: 11/13/2019 01:41 PM Ordering Location: [facility] Received: 11/13/2019 01:59 PM SERVICES Pathologist: Surya Rodríguez MD Specimen: Cyst, PELVIC CYST DIAGNOSIS (test code = [id number] 3220) FuZzEwMzNcZnRuYmpcdWMx VEqhzwVqDPfxg6GeN2HbXj AwMFxhbnNpXGRlZmxhbmcx MPWlHKN8paCyUHNxJDmgWI PgGGpdIl6bvIEyhAibWvYc YGDif4lvpzRFhccymGr5k3 pkWPCjHzB6nOPyOIfdU2ve znRocTEmBKMaURz2sM97TC AuxY0geKBzRSfigrAuJhT6 RLjrKJOlClQ0GQVuuANcMV EvE5oaPVKzKQgrPZNrKPxp yOQqWIE5uXjdm5D2iYTtlO UepLxqSrJhCdJjPCPEa0Im NPl4aFypH1RlBKXsRjR3vK QgUGFyYWdyYXBoIEZvbnQ7 iN09TXfqwoS5mZYhp0Oli6 2dj275hF0mcFWlPHK0CBAi POMcxLPnHLZdUZM9IIMfdU SiE1k9HhLqiPZdA8L4GnCc vTBxP7R6QpCrxZEcM1M2Ha HqjPWeKWCdnVZzLv1cvFXz nFXrbf6vkz15UTJ3l2QlyB kkDBA8EWY4NmAhUr7ulHGf NSUaWK3kApQgaXZdAIZogp 82jKeiRGyjoyCjrT8aMnAx BLWhaZIwPBGfCD3fjKDeIY AtlP0mhmoqLIAyLbEzaigd RMOsfTdrpiTiXs8vcDjqLA Z3VMbqK6kplS1xGrT4BOvk F3lxlJ7bKGa2RUuhhDY8VL CzfG0gLU8ajmmdc1qqTlCv JG3ebowvo4xrCcJgVA2zdw t1i4jvAlIlRT1rizqop1oi NzIwXGhlYWRlcnkwXGZvb3 UefletJUNva9WyI5HmfXgf G66zqNboN41uQOObsVrmmU 5acDziyI4aPcBmAgNbCOak bFxwbGFpblxmMVxmczIwXG qrwtwvROTwFTtqW3qgIkNn PQLjuFwwEPadj1AdFTPgLB KvKbHoKS2mYIFUANOOYrVI RHAPFOKOO3ScYW3WGDRJHN xPUElBTiBUVUJFLCBTQUxQ RT0VZv5PB0JMN5HEA4SYSS f0OSGrggPpVF1AUJOBNR0k S5LJY5QXFJTDM1EVDHCSI2 1BXHBhciAtIFVOUkVNQVJL OTZWNVQINV3MJqxHODYKOR ZBTExPUElBTiBUVUJFXHBh xz73SUZ4ZeNhp5I4IGG1MR ZkYGWom5uaUNAubTVdGoQj MzNcZnRuYmpcdWMxXGRlZm Mkv7ruo707wQQkq6vhSHUb NhK4qHVrPFSdoNKeH608KE NuXNdrf7jjb3PhVEIdxCCx t2Z9LNPWggunfOc0aGgpK3 3bw4Z3VfddS9ozXCRlQSOk Y5BnYL8iYGReFdw6NLY4LZ J8AUAlFJEuH6RzTS5lFTRk jPUsARp9x4nrqVilJYNmBO H8r6bkAXstpmWwTI3wyv9n sDm4s8otqeWyCIAzXIWhtV MMYZPkE1UpvRvqPq0jlNr8 eIxdBhywJLJ8Gjm7AG0uew 20map4xQquYXObhpagVnX9 RMwwNZBctiawUPa6ZJtqUP KcyLV1ZPVumNDpM4WsJGOs NF4gxqe2AYR0KJwtLBRyGw Y8RQNygZMrZQXbiKoaALsu a715JFG1DxXhDP3cC5Wld7 P6lF9onWOmYQMdiYVpLcYl WYTfhu6kbQZkEVlye0TnZL T3jhO8dRYwaYIjLHFhMfQ7 MWguYU1bwg94TABhBJQ3ad 5ybGNccGdicmRyaGVhZFxw B3CkIKVtc007YRMvH3MrDL Qen1G8woTwRnNyLCTkjFA0 ftB8UXJoQA7dmibpg9ojYA jtWBehSLGefyA2crB8NWMl eTRsH5VwjJ5gPLMjPU9cgs vbd7gaTDD0WVlkGUSzBNM8 OtTfKYSfq6Hcnhj9LwQch6 XvkATiPEeyH56jq539UJBm mlDwG2hoeVWgvdczgTQbjw tsLBwebwP4LGQvEIjteswm VRKzRStmX3kjDxZyPQCfcB wcDCuvr0TyQUVbZGDnTkKs mDRqIIDoIhy7NQYybTIwSE ReXrEeK0ymwhlvBxKRWQWe w7vfU9rdiFXOpLZxR9KpGQ aofsGuBDbqTAhuESB6PQJ0 Du33PqV8QSNcur78 CPT Code(s) (test code c9tdgUSaJKKutBYeMfOkRH = 3357) YgNCRtp8yfNSVljTVoTrBu MzNcZnRuYmpcdWMxXGRlZm Hvd5qhz828wGRrh7bhINZp RwW7sQTwBNHhsRHmN549m5 syb6tiebPvlCW4YQItADW5 ZAnzwoCkxlO1OSrmiWPaPf M6AErlahStRNrfzdTgnfWx Vhq5HNHhW343UQR5kWgnh2 xjPDS4WYLkLHCsSfZkHw4i mQHgT494RTWlGWQQEDZzbS a8CFBukaDfidOakAIAx144 D481z0hyEUCtyqYxvQxOru lyq1mmA391SLPypTVquiJv OsUkPKZgjJUjgNP5AYCnCG 7lvydvKzIaTD5puoagMfZp TN3aaqr9BiEhBF5fdfkcMa OoXCohKAFvmvihAJAct5Vp jxogFT9bO2Sjv3U4iV1ryM BwBZGlxTMuDgIlZYEikm5f iPSoNNwsp0TwHJE3lnB4cX VtzVRcLRIcTD66Zzzrd0Nw SjcyFVH3KMRtqmVlx6Lcx7 gkYbBxliNvA0upI4DjRDKw ROVnOERdLaQzvkEvs4Yxc4 BbdBBsqBp6t4luLBCeIIYr zKcjp4ljBDF9OXGcE6G5vG Arb0ilKNegTBYabZD1xilx IHueWTLwcrO9mavjECyyEO DvtXA8zwnqBFrxIEVpMjL4 jsmiALsrDWUdRBD8CGpgv1 99GPC6WKkkJaxjDWkgMLAj bmNvbnRccGduZGVjXHBsYW luXHBsYWluXGYwXGZzMjRc kElezEwmhC6yErCwYqFvCQ hkFM7kWBBuP5synHIlERHh QXLhP5wmGfMshX9lkLutVR ejarQjCGq2IvB5VXZ3TEAd MSwgODgzMzJccGFyfQ== GROSS DESCRIPTION (test m5qfbYBpODVeaNSsKaKtTI code = 3366) BuPXFpw8gvNDVpeYNdGoGv MzNcZnRuYmpcdWMxXGRlZm Olj5jgo888tPAva8uxDSYk ElS7cBYoBHDiyMCcQ190AD RkPKhaf4wdd0EvSYBhiLFo t3J7UFSSmpvvfLy3tCulS3 5uu6S3TfjzK2klSNLiOWYk S6GqQI2bFLIkLat9FGJ8XG W5LRBxYIUmD4EyCS2rPQMm rHSqHXw6s5kyjKztOEPuDC T6e0gwLAothvYiAA0fnh1k fQl6n0ohmiLvLQAoIXOqyQ YLMUDyZ8VzuZigDa6wiCx4 dFpiOhjpTRC0Dtd1NX5tzp 41cho3sEcaDBZlydolXkD4 SJxsZDOoqosjMBf0IYzsYV JnbDcyMFxtYXJncjcyMFxt YXJndDcyMFxtYXJnYjcyMF peJAUbXNI0AKicf504IPA7 IXfea1hzn7mwjLHvNtj8TU JjGeKlRntvPLnpz9Jwp1mc DTEgcb4xOFD9hJIheGmkj6 Y1gBUvERYxfHJhdqGuRJRr MzY5ATumCR9fam80UQWfXW S9yu4yhHYwgJofszQmfCWf AZrhW2SfCKMnm746GMSaN7 BuTWJxa2F6phXoPgCvGCYd uWZ9doW3SRIfXUa0dZPvqx V1bfStpFDxV9sakY82AzGl qWTqQ6QsnV47PvVmvSUoJ0 GrlR92SiVfuXHuZ1PtiB20 OuVilKPzHPRfyNPmNt6vqK QtfUErw4OisDCdLOujG20p l067OCWwmgShO9gktGEcyu ddpHWncokxFMvjvhG9VDOg XHBsYWluXGYxXGZzMjBcbG FuZzEwMzNcaGljaFxmMVxk GaPdGOZxXFajH8ytDdOfLo UaPCZHkYUlnYTaCWW3f6Ly WHEgw592ECldYMOySMFiZX HgIXElMVH6IJUmzkJdOHii QRcnWxSvTFClCxFtPH2bDT W2Ir3ddVDuPGMzkkGWwMWd m1MsH8wdQF4doTLgkbFeHF p6NYKssT9cGk2dfLOiiI5v hW8jZWKveF6exZNlV06znH OttbDtMArrAeAtBNJdk9m8 nWI3rPKimTO2sDMmyGnlJS 9jcQGoCKJXZU0CQlUtACQh DXJdYOGdL7GjXWLhZ46wCX FirD5fTGQlKQZebfvlEZXd TQ8iVZqsHEPiUCSaeQHxGP fkJnXxZBDfQfMFP9GsYRVx axVtu2CqUX8pZCNaJGZ2FK xpUBH5SyVkuIPnZvM2ZFzb Z03zq8Dcvnowp2l7iCNzem LveVXjP5zfQTNnUoishQEj SjKpY05sqF0yeYlbswNiIs ZvgVN9JRzxJwliUdDmTKFy TPXzGNaqp8YtBM7bjZVtXX 3oMLvcOV93nBAjIKJlp5Jd zErbDR14SNZ4ZFjoLQLfoq 6fgL6pQCOwXWTyiF4ghAoe NFjzo2OtHZZxCEPsFH2zCQ egHIWoOYZieVIwAIgbMZ1x WA0eHXQ0pwYlVEHzZLwdRZ O3iyrhy1T4iLPcVPVqnG1m gJssy4XqtYZjJAAkVCXnoK SaHim5gMQxYnywgFHvVOA4 b4HjAiFFrDZuV6fukFN1KN ocQW4pGNO7ofGiVZLhu66i SW9fEPEsDEYfMBJcO15qjC 2kL0SrKRDmi1EiKNjpAV7e qL3tKsIHJVBaYYRcbqGswS o3THXwOTG7mR5jliAijrJe w6UteMl8mQAfSIKpiaPfi5 qpw3hrSraaBNYtUWWtTyBT AiNPEVQoAEMofmKazNf6LV AbFEO7qC7xnpUcUhJxeeIw jn32JB5ot4RggWpqsrgaHP EyAPX3FEQjgOtcaDphtjC2 dWJlXHBhciBBNFxwbGFpbl xmMFxmczIwXGxhbmcxMDMz DOimJ3tvSrKkRJZfbHbsWJ jab7JhFHNxZQTxWfQllKzh OEDiDYf0ZqqgmHIrxwsxRA xmczIwXGxhbmcxMDMzXGhp I0agBiXyONOtnWxfCWiqa6 PgYWNfPYRlYoZwHHP4NBOg eYOoj8CwaXJ9yTBtRHSwE4 Jlq13bMD5dVBR7h4Udg5Zg bFxwYXJ9 INTRAOPERATIVE c8bsuWPpIZCmqMBeJeMhQA CONSULTATION (test code YhULVci6qsVCDcrTPrFxRr = 3369) MzNcZnRuYmpcdWMxXGRlZm Pwm1npy565fPYsy5jeLBMi BgI4fTLjUGRfrTVgM855i7 zfq6saxhNuwVM0CIQdUVZ1 SAuhdnSaudY8AHvqgGQiXe G8CZvrdzNiECfnugAwamLq Whf9LRBtT053MEI9qOnti7 pgMYH1LTFiXKQqGsUyUc3x zTNjQ885PUCnYLMDUVYonC t0TGQmejXdopNlbSELm914 K211v8uzVUVarhXjpZwOol buw6eyQ332JOUbzBCqzqJk MoDaAEQdtKEsqUH8XUAlXO 1zdlrgUjNbMV4dygorHhNa AB6xgoy8AeFvUL4suemuCw AxXJbjUQYrsqpvEBFjb2Cb rnbrEG4uD6Xcc5A9aJ9bgO VaATWcaCLnVwCgUDAouu0c aUJmGTpyv5YyCVP0coX2cP SlqWDpTNNkID17Lhfpq9Bj XvzaWHV6JQSumvMur6Jka5 csPiYmeuMaH5cgT6UiRTDs AQZgRDYpSlRgnaEds8Zlq8 KumWIopFk1v7uiTFWzEUZw eLfmp4jbOHU2FRHdK2R4jC Yti4ahZYwtMAPzcWE7oqaa LOhvMQKcgyO5mapzNKjqEX EldGF1ebtjCLlsUWIgRoD8 spyrGGprJKQgHZG2ICsao0 76CIQ3ZLppZzcpDJlbKWDj bmNvbnRccGduZGVjXHBsYW luXHBsYWluXGYwXGZzMjRc gUzlwYetzH0nPcAeUbBvUP rhEB8hHUEbA2agtEWvMMRj ACAhI4gqOwQzlS2pwNibVH xmczIwIEEuIExFRlQgUEVM YclANIJKH2RdXL0DTWNHWC xPUElBTiBUVUJFLCBDWVNU IARYO73CUOPPRWXFTCMVEJ IHX8XOCYQZNNlLQX7OYPBL E88YUdqdEUDlYGLXbfpjo7 G2bDYmDXE5z8NwJ26jn7tj dTSobKW9eLIsUY68LBNtJH 1ig0Lwg3LrMYH3d9QsMCKn i75jTWSfafAnYWewj2MjuL pjjE8nHU2nksweUlzlMHDq bNGgnAG9GQHbOxXwkD8jkR MnKAU9SsEvkHBbPR2tGWwe a9QaRlvqMJbeT8Gyw7RfCB BkaXNjdXNzZWQgdmlhIHRl qZDuiY0gQVK1kHSiFLTrRy FDi9eiewVcyEGlCwT6UBGL SF5oJUQbQH5qAAAaGWOmgk UMCXAvfbTDZsESj5SaPLDN RFxwYXJ9 MICROSCOPIC DESCRIPTION i1nmyZAlNNHxfCVxWsFvOY (test code = 3371) AjYFJyu0zyHLYggLByQdJc MzNcZnRuYmpcdWMxXGRlZm Fcx1lrm273eGHqp2miMEUg GtP6sCAqQOTgeDKtH658f5 ffw5qmjxLyiIQ6FEPxKPC3 OLxwkmAlkyL1BMilrBXnVj B8SFftkoQuLDaqmoGlsvUa Rku4ETHiE364CHS8wJmyt1 bhNLZ5TGCiSXEzHkBjIo5x zRGmB605XRZyNTCDMSIfzE i4NOPtwaBihxElyLNGd481 P467s2gpCLOljhQfrTbIbz qdc3whH051ANSzrQGfmvLq YsJfOTMppZTpqAZ3BNKhAS 7jpjfbLrSzJD6kvnxkRsFh TZ0snum1XsJyHA8buixyWr FgOSjmNTQgekncFJGxz7Gm pfduUU5oF0Ivb0W0sX6ceH YnGGCcaFAzGhGsYRXjpo8a nTOkOUtug2NvJYG4qsH3cN XlsTGoEELjEM69Gggir4Hn YhvwOHS0WAKasxMfz7Jtq4 ndCxUzghRiN1amD7IyKLJz TEBsNWNpDtOwehPvo7Xex2 VpvTTjzMw1j1byYSYwQCXo iXnmo2pbTUS8WXUwJ2R6wE Cqm7csBZroLBVawAW8gtpf PWucWXKivuQ1wrmqKUqmUI YpxVT1ozfaZLxsUMCsHnV0 jrjzBQydYVHuKSU6SEzlr9 68WVT1LKdcOotxPZryNXMl bmNvbnRccGduZGVjXHBsYW luXHBsYWluXGYwXGZzMjRc wWxdiJyhdO0cMoVgXeRxME uhQB3rOTJiC9nssDYyWLVm ESHeS6qtPdGqqV9fbIeiWY wajyKzYB6hP0Mhu0CjzMsa LNH6MF2udiO5sT9zXYsoVE DwrhZtec6qTZZymzTtqRGs uM0fk0Ynb1SddTObJDntFQ BwPQPgxWSwam7irCebYCov bmUuXHBhcn0= Gross assessment was [facility] performed at (test code [facility], = 2777) Department of Pathology, [address] [place] [address], Technical component was [facility] performed at (test code [facility], = 2778) Department of Pathology, [address] [place] [address], Professional component [facility] was performed at ([facility], code = 2779) Department of Pathology, [address] [place] [address], [facility] Valley[facility] [id number] 12:27:00Surgical Pathology Report Case: [id number] Authorizing Provider: Wes Tran MD Collected: 11/13/2019 01:41 PM [facility] Received: 11/13/2019 01:59 PM SERVICES Pathologist: Surya Rodríguez MD Specimen: Cyst, PELVIC CYST A. LEFT OVARIAN CYST AND FALLOPIAN TUBE, SALPINGO-OOPHORECTOMY:- OVARIAN SEROUS CYSTADENOMA- UNREMARKABLE FIMBRIATED FALLOPIAN TUBE Signing Pathologist Direct Phone Line: [phone] signed by Surya Rodríguez MD on 11/15/2019 at 12:27 [id number], [id number], [id number] paperwork, container, and cassette are all labeled [id number].The specimen is received in formalin in a single container labeled with the patient's name (PRABHAKAR) and medical record number.A. The specimen labeled "CYST" consists of a 864 g, 14.5 x 13 x 8 cm ovary with an attached 3.8 x 0.5 cm portion of distal/fimbriated fallopian tube. Theoutside of the ovary is christianson-pink and smooth (inked black). The specimen is opened to reveal a unilocular, smooth-walled, serous fluid-filled cysts. The cyst wall measures from 0.1 up to 1 cm in greatest dimension. Ticket Seller sections are submitted as follows:A1-2FS: Ticket Seller sections after frozen sectionA3: Fallopian tubeA4-14: Ticket Seller sections of cyst wallA. LEFT PELVIC CYST AND FALLOPIAN TUBE, CYSTECTOMY AND LEFT DISTAL SALPINGECTOMY:- Unilocular cyst consistent with ovarian serous cystadenoma- Grossly unremarkable fimbriated fallopian tube- These findings were discussed via telephone with Dr. Tran at 2:28 PM on 11/13/2019Surya Rodríguez, MDMicroscopic examination is performed andis incorporated in the diagnostic line.[facility], Department of Pathology, [place] [address], Xqmybk [facility], Department of Pathology, [address] [place] [address], UtEC[facility], Department of Pathology, [place] [address], YA, MRA, BRAIN, WITHOUT [id number] 11:50:00Deos the patient have an implanted electronic device?->NoFINAL REPORT MR, BRAIN, WITHOUT CONTRAST, MR, MRA, BRAIN, WITHOUT CONTRAST INDICATION: Headache, acute, normal neuro examheadache MRI and MRA brain without contrast please TECHNIQUE: Multiplanar, multisequence MR images of the brain. 3-D time of flight MRA of the cranial and cervical circulation. 2-D time of flight MRA of the neck. 3D MIP angiographic post-processing was perfor med. Stenosis evaluation utilized NASCET criteria. COMPARISON: Noncontrast brain CT of the same dateFINDINGS: MRI BRAIN: Brain parenchyma is normal in morphology. Midline structures are normally developed. No restricted diffusion to suggest recent ischemic insult. No abnormal susceptibility. No hydrocephalus. Orbits are within normal limits. No obstructive paranasal sinus disease. Additional findings: None. MRA BRAIN:Internal carotid arteries: Normal flow related enhancement without flow-limiting stenosisMiddle cerebral arteries: Normal flow related enhancement within the bilateral MCA M1-M2 segments without flow limiting stenosisAnterior cerebral arteries: Normal flow-related enhancement within the bilateral TAMMY A1-A2 segments without flow limiting stenosisBasilar system: Normal flow-relatedenhancement within the bilateral V4 segments and the basilar artery without flow-limiting stenosis Posterior cerebral arteries: Normal flow-related enhancement within the bilateral POWERHOUSE MECHANIC HELPER P1- P2 segmentswithout flow-limiting stenosisAdditional findings: None. IMPRESSION: No acute ischemia or parenchymal hemorrhage. No flow limiting stenosis in the major branch vessels of the cranial circulation. Signed: Elder Martin MDReport Verified Date/Time: 11/15/2019 11:50:26 Reading Location: [address] Neuro Reading Room MR, BRAIN, WITHOUT [id number] 11:50:00Deos the patient have an implanted electronic device?->NoFINAL REPORT MR, BRAIN, WITHOUT CONTRAST, MR, MRA, BRAIN, WITHOUT CONTRAST IND ICATION: Headache, acute, normal neuro examheadache MRI and MRA brain without contrast please TECHNIQUE: Multiplanar, multisequence MR images of the brain. 3-D time of flight MRA of the cranial and cervical circulation. 2-D time of flight MRA of the neck. 3D MIP angiographic post-processing was performed. Stenosis evaluation utilized NASCET criteria. COMPARISON: Noncontrast brain CT of the same dateFINDINGS: MRI BRAIN: Brain parenchyma is normal in morphology. Midline structures are normally developed. No restricted diffusion to suggest recent ischemic insult. No abnormal susceptibility. No hydrocephalus. Orbits are within normal limits. No obstructive paranasal sinus disease. Additional findin gs: None. MRA BRAIN:Internal carotid arteries: Normal flow related enhancement without flow-limiting stenosisMiddle cerebral arteries: Normal flow related enhancement within the bilateral MCA M1-M2 segments without flow limiting stenosisAnterior cerebral arteries: Normal flow-related enhancement within the bilateral TAMMY A1-A2 segments without flow limiting stenosisBasilar system: Normal flow-relatedenhancement within the bilateral V4 segments and the basilar artery without flow-limiting stenosis Posterior cerebral arteries: Normal flow- related enhancement within the bilateral POWERHOUSE MECHANIC HELPER P1-P2 segmentswithout flow-limiting stenosisAdditional findings: None. IMPRESSION: No acute ischemia or parenchymal hemorrhage. No flow limiting stenosis in the major branch vessels of the cranial circulation. Signed: Elder Martin MDReport Verified Date/Time: 11/15/2019 11:50:26 Reading Location: [address] Reading Room MRA head without IV [id number] 11:50:00Interface, External Ris In - 11/15/2019 11:52 AM CDTFINAL REPORT MR, BRAIN, WITHOUT CONTRAST, MR, MRA, BRAIN, WITHOUT CONTRAST INDICATION: Headache, acute, normal neuro examheadache MRI and MRA brain without contrast please TECHNIQUE: Multiplanar, multisequence MR images of the brain. 3-D time of flight MRA of the cranial and cervical circulation. 2-D time of flight MRA of theneck. 3D MIP angiographic post-processing was performed. Stenosis evaluation utilized NASCET criteria. COMPARISON: Noncontrast brain CT of the same date FINDINGS: MRI BRAIN: Brain parenchyma is normal in morphology. Midline structures are normally developed. No restricted diffusion to suggest recentischemic insult. No abnormal susceptibility. No hydrocephalus. Orbits are within normal limits. No obstructive paranasal sinus disease. Additional findings: None. MRA BRAIN:Internal carotid arteries: Normal flow related enhancement without flow- limiting stenosisMiddle cerebral arteries: Normal flow related enhancement within the bilateral MCA M1-M2 segments without flow limiting stenosisAnterior cerebral arteries: Normal flow-related enhancement within the bilateral TAMMY A1- A2 segments without flow limiting stenosisBasilar system: Normal flow-related enhancement within the bilateral V4 segments andthe basilar artery without flow-limiting stenosis Posterior cerebral arteries: Normal flow-related e nhancement within the bilateral POWERHOUSE MECHANIC HELPER P1-P2 segments without flow-limiting stenosisAdditional findings: None. IMPRESSION: No acute ischemia or parenchymal hemorrhage. No flow limiting stenosis in the major branch vessels of the cranial circulation. Signed: Elder Martin MDReport Verified Date/Time: 11/15/2019 11:50:26 Reading Location: [facility] C013V Neuro Reading [facility] [id number] 11:50:00 Interface, External Ris In - 11/15/2019 11:52 AM CDTFINAL REPORT MR, BRAIN, WITHOUT CONTRAST, MR, MRA, BRAIN, WITHOUT CONTRAST INDICATION: Headache, acute, normal neuro examheadache MRI and MRA brain without contrast please TECHNIQUE: Multiplanar, multisequence MR images of the brain. 3-D time of flight MRA of the cranial and cervical circulation. 2-D time of flight MRA of theneck. 3D MIP angiographic post-processing was performed. Stenosis evaluation utilized NASCET criteria. COMPARISON: Noncontrast brain CT of the same date FINDINGS: MRI BRAIN: Brain parenchyma is normal in morphology. Midline structures are normally developed. No restricted diffusion to suggest recentischemic insult. No abnormal susceptibility. No hydrocephalus. Orbits are within normal limits. No obstructive paranasal sinus disease. Additional findings: None. MRA BRAIN:Internal carotid arteries: Normal flow related enhancement without flow-limiting stenosisMiddle cerebral arteries: Normal flow related enhancement within the bilateral MCA M1-M2 segments without flow limiting stenosisAnterior cerebral arteries: Normal flow-related enhancement within the bilateral TAMMY A1-A2 segments without flow limiting stenosisBasilar system: Normal flow-related enhancement within the bilateral V4 segments andthe basilar artery without flow-limiting stenosis Posterior cerebral arteries: Normal flow-related enhancement within the bilateral POWERHOUSE MECHANIC HELPER P1- P2 segments without flow-limiting stenosisAdditional findings: None. IMPRESSION: No acute ischemia or parenchymal hemorrhage. No flow limiting stenosis in the major branch vessels of the cranial circulation. Signed: Elder Martineport Verified Date/Time: 11/15/2019 11:50:26 Reading Location: [facility] B1 C013V Neuro Reading Room [facility] Comprehensive metabolic [id number] 08:47:00 Test Item Value Reference Range Interpretation Comments Protein, Total (test 6.4 6.0- 8.5 gm/dL code = 2885-2) Albumin (test code = 3.7 g/dL 3.5-5 88849-8) Alkaline Phosphatase 51 U/L 30-115 (test code = 6768-6) Total Bilirubin (test 0.4 mg/dL 0.1-1.2 code = 1975-2) Sodium (test code = 135 meq/L 228-168 7576-2) Potassium (test code = 3.5 meq/L 3.6-5.5 L 2823-3) Chloride (test code = 99 meq/L 98-106 2075-0) CO2 (test code = 27 meq/L 20-29 2028-9) BUN (test code = 5 mg/dL 10-26 L 3094-0) Creatinine (test code 0.66 mg/dL 0.5-1.2 = 2160-0) Glucose (test code = 144 mg/dL 70-110 H 2345-7) Calcium (test code = 8.5 mg/dL 8.5-10.5 53846-2) AST (test code = 18 U/L 5-40 1920-8) ALT (test code = 12 U/L 5-50 1742-6) EGFR (test code = 97 mL/min/1.73 [place] [address]-4) NOT ACCURATE CREATININE CLEARANCE IN PREDICTING GLOMERULAR FILTRATION RATE . ESTIMATED GFR I S NOT APPLICABLE FOR DIALYSIS PATIENTS. LEIDY (test code = LEIDY) Wind Turbine Design Engineer ID - THOR Lab Interpretation Abnormal (test code = 77984-2) [facility]COMPREHENSIVE METABOLIC [id number] 08:47:00 Test Item Value Reference Range Interpretation Comments TOTAL PROTEIN 6.4 gm/dL 6.0-8.5 (BEAKER) (test code = 770) ALBUMIN (BEAKER) 3.7 g/dL 3.5-5.0 (test code = 1145) ALKALINE PHOSPHATASE 51 U/L 30-115 (BEAKER) (test code = 346) BILIRUBIN TOTAL 0.4 mg/dL 0.1-1.2 (BEAKER) (test code = 377) SODIUM (BEAKER) (test 135 meq/L 135-148 code = 381) POTASSIUM (BEAKER) 3.5 meq/L 3.6-5.5 L (test code = 379) CHLORIDE (BEAKER) 99 meq/L 98-106 (test code = 382) CO2 (BEAKER) (test 27 meq/L 20-29 code = 355) BLOOD UREA NITROGEN 5 mg/dL 10-26 L (BEAKER) (test code = 354) CREATININE (BEAKER) 0.66 mg/dL 0.50-1.20 (test code = 358) GLUCOSE RANDOM 144 mg/dL 70-110 H (BEAKER) (test code = 652) CALCIUM (BEAKER) 8.5 mg/dL 8.5-10.5 (test code = 697) AST (SGOT) (BEAKER) 18 U/L 5-40 (test code = 353) ALT (SGPT) (BEAKER) 12 U/L 5-50 (test code = 347) EGFR (BEAKER) (test 97 mL/min/1.73 ESTIMA SONIA GFR IS code = 1092) sq m NOT ACCURATE CREATININE CLEARANCE IN PREDICTING GLOMERULAR FILTRATION RATE . ESTIMATED GFR I S NOT APPLICABLE FOR DIALYSIS PATIEN TS. Wind Turbine Design Engineer ID - ROBERTCBC with platelet count + automated [id number] 08:28:00 Test Item Value Reference Range Interpretation Comments WBC (test code = 6690-2) 10.2 4.0- 10.0 K/L H RBC (test code = 789-8) 3.60 4.00- 5.00 M/L L MCHC (test code = 786-4) 32.9 32.0- 36.0 GM/DL L Hematocrit (test code = 4544-3) 35.6 % 36-46 L MCV (test code = 787-2) 98.9 fL 82-99 MCH (test code = 785-6) 32.5 pg 27-33 RDW (test code = 788-0) 14.5 % 12-15 Platelets (test code = 777-3) 266 150- 430 K/CU MM MPV (test code = 06249-4) 9.1 fL 6-11.5 nRBC (test code = 413) 0 0- 0 /100 WBC % Neutros (test code = 429) 80 % % Lymphs (test code = 430) 11 % % Monos (test code = 431) 8 % % Eos (test code = 432) 0 % % Baso (test code = 437) 0 % # Neutros (test code = 670) 8.16 1.80- 8.00 K/L H # Lymphs (test code = 414) 1.15 1.48- 4.50 K/L L # Monos (test code = 415) 0.77 0.00- 1.30 K/L # Eos (test code = 416) 0.01 0.00- 0.50 K/L # Baso (test code = 417) 0.03 0.00- 0.20 K/L Immature Granulocytes-Relative 0 % 0-0 (test code = 2801) Lab Interpretation (test code = Abnormal 34007-3) [facility] W/PLT COUNT & AUTO [id number] 08:28:00 Test Item Value Reference Range Interpretation Comments WHITE BLOOD CELL COUNT (BEAKER) 10.2 K/ L 4.0-10.0 H (test code = 775) RED BLOOD CELL COUNT (BEAKER) 3.60 M/ L 4.00-5.00 L (test code = 761) HEMOGLOBIN (BEAKER) (test code = 11.7 GM/DL 12.0-15.5 L 410) HEMATOCRIT (BEAKER) (test code = 35.6 % 36.0-46.0 L 411) MEAN CORPUSCULAR VOLUME (BEAKER) 98.9 fL 82.0-99.0 (test code = 753) MEAN CORPUSCULAR HEMOGLOBIN 32.5 pg 27.0-33.0 (BEAKER) (test code = 751) MEAN CORPUSCULAR HEMOGLOBIN CONC 32.9 GM/DL 32.0-36.0 (BEAKER) (test code = 752) RED CELL DISTRIBUTION WIDTH 14.5 % 12.0-15.0 (BEAKER) (test code = 412) PLATELET COUNT (BEAKER) (test 266 K/CU MM 150-430 code = 756) MEAN PLATELET VOLUME (BEAKER) 9.1 fL 6.0-11.5 (test code = 754) NUCLEATED RED BLOOD CELLS 0 /100 WBC 0-0 (BEAKER) (test code = 413) NEUTROPHILS RELATIVE PERCENT 80 % (BEAKER) (test code = 429) LYMPHOCYTES RELATIVE PERCENT 11 % (BEAKER) (test code = 430) MONOCYTES RELATIVE PERCENT 8 % (BEAKER) (test code = 431) EOSINOPHILS RELATIVE PERCENT 0 % (BEAKER) (test code = 432) BASOPHILS RELATIVE PERCENT 0 % (BEAKER) (test code = 437) NEUTROPHILS ABSOLUTE COUNT 8.16 K/ L 1.80-8.00 H (BEAKER) (test code = 670) LYMPHOCYTES ABSOLUTE COUNT 1.15 K/ L 1.48-4.50 L (BEAKER) (test code = 414) MONOCYTES ABSOLUTE COUNT (BEAKER) 0.77 K/ L 0.00-1.30 (test code = 415) EOSINOPHILS ABSOLUTE COUNT 0.01 K/ L 0.00-0.50 (BEAKER) (test code = 416) BASOPHILS ABSOLUTE COUNT (BEAKER) 0.03 K/ L 0.00-0.20 (test code = 417) IMMATURE GRANULOCYTES-RELATIVE 0 % 0-0 PERCENT (BEAKER) (test code = 2801) CT, BRAIN, WITHOUT [id number] 23:20:00FINAL REPORT CLINICAL HISTORY: Headache. COMPARISON: None Multiple axial images of the brain were performed without IV contrast. This exam was performed according to our departmental dose-optimization program, which includes automated exposure control, adjustment of the mA and/or kV according to patient size and/or use of the iterative reconstruction technique. The examinationis slightly limited by streak artifact from bilateral earrings. Intracranial hemorrhage: None. Brain parenchyma: No CT evidence of acute ischemia. The thao-white differentiation is maintained. Ventricles, sulci and basal cisterns: Normal for age. Extra- axial spaces: Normal. Midline shift: None. Visualized vasculature: Normal. Cranium: No significant findings. Skullbase: No significant findings. Paranasal sinuses: No significant findings. IMPRESSION: No definite acute intracranial abnormality.There is no mass lesion, intracranial hemorrhage or CT evidence of acute stroke. Please note that CTis insensitive in the detection of acute ischemia. Signed: Alli Sharma MDReport Verified Date/Time: 11/14/2019 23:20:39 CT brain without IV [id number] 23:20:00Interface, External Ris In - 11/14/2019 11:22 PM CDTFINAL REPORT CLINICAL HIS TORY: Headache. COMPARISON: None Multiple axial images of the brain were performed without IV contrast. This exam was performed according to our departmental dose-optimization program, which includes automated exposure control, adjustment of the mA and/or kV according to patient size and/or use of theiterative reconstruction technique. The examination is slightly limited by streak artifact from bilateral earrings. Intracranial hemorrhage: None. Brain parenchyma: No CT evidence of acute ischemia. The thao-white differentiation is maintained. Ventricles, sulci and basal cisterns: Normal for age.Extra-axial spaces: Normal. Midline shift: None. Visualized vasculature: Normal. Cranium: No significant findings. Skullbase: No significant findings. Paranasal sinuses: No significant findings. IMPRESSION: No definite acute intracranial abnormality. There is no mass lesion, intracranial hemorrhageor CT evidence of acute stroke. Please note that CT is insensitive in the detection of acute ischemia. Signed: Alli Sharma MDReport Verified Date/Time: 11/14/2019 23:20:39 [facility]00 Test Item Value Reference Range Interpretation Comments Sodium (test code = 138 meq/L 211-648 4910-2) Potassium (test code = 4.3 meq/L 3.6-5.5 2823-3) Chloride (test code = 102 meq/L 98-106 2075-0) CO2 (test code = 8-9) 27 meq/L 20-29 LEIDY (test code = LEIDY) Wind Turbine Design Engineer ID - [place] Lab Interpretation (test Normal code = 99294-4) [facility]LECT[facility]OL[facility] 06:20:00 Test Item Value Reference Range Interpretation Comments SODIUM (BEAKER) (test code = 381) 138 meq/L 135-148 POTASSIUM (BEAKER) (test code = 4.3 meq/L 3.6-5.5 379) CHLORIDE (BEAKER) (test code = 382) 102 meq/L 98-106 CO2 (BEAKER) (test code = 355) 27 meq/L 20-29 Wind Turbine Design Engineer ID - Kinsey TCBC W/PLT COUNT & AUTO [id number] 06:08:00 Test Item Value Reference Range Interpretation Comments WHITE BLOOD CELL COUNT (BEAKER) 11.8 K/ L 4.0-10.0 H (test code = 775) RED BLOOD CELL COUNT (BEAKER) 3.54 M/ L 4.00-5.00 L (test code = 761) HEMOGLOBIN (BEAKER) (test code = 11.7 GM/DL 12.0-15.5 L 410) HEMATOCRIT (BEAKER) (test code = 34.6 % 36.0-46.0 L 411) MEAN CORPUSCULAR VOLUME (BEAKER) 97.7 fL 82.0-99.0 (test code = 753) MEAN CORPUSCULAR HEMOGLOBIN 33.1 pg 27.0-33.0 H (BEAKER) (test code = 751) MEAN CORPUSCULAR HEMOGLOBIN CONC 33.8 GM/DL 32.0-36.0 (BEAKER) (test code = 752) RED CELL DISTRIBUTION WIDTH 14.5 % 12.0-15.0 (BEAKER) (test code = 412) PLATELET COUNT (BEAKER) (test 272 K/CU MM 150-430 code = 756) MEAN PLATELET VOLUME (BEAKER) 9.2 fL 6.0-11.5 (test code = 754) NUCLEATED RED BLOOD CELLS 0 /100 WBC 0-0 (BEAKER) (test code = 413) NEUTROPHILS RELATIVE PERCENT 81 % (BEAKER) (test code = 429) LYMPHOCYTES RELATIVE PERCENT 8 % (BEAKER) (test code = 430) MONOCYTES RELATIVE PERCENT 11 % (BEAKER) (test code = 431) EOSINOPHILS RELATIVE PERCENT 0 % (BEAKER) (test code = 432) BASOPHILS RELATIVE PERCENT 0 % (BEAKER) (test code = 437) NEUTROPHILS ABSOLUTE COUNT 9.49 K/ L 1.80-8.00 H (BEAKER) (test code = 670) LYMPHOCYTES ABSOLUTE COUNT 0.99 K/ L 1.48-4.50 L (BEAKER) (test code = 414) MONOCYTES ABSOLUTE COUNT (BEAKER) 1.24 K/ L 0.00-1.30 (test code = 415) EOSINOPHILS ABSOLUTE COUNT 0.00 K/ L 0.00-0.50 (BEAKER) (test code = 416) BASOPHILS ABSOLUTE COUNT (BEAKER) 0.03 K/ L 0.00-0.20 (test code = 417) IMMATURE GRANULOCYTES-RELATIVE 0 % 0-0 PERCENT (BEAKER) (test code = 2801) ABORH, [id number] 12:10:00 Test Item Value Reference Range Interpretation Comments ABO Grouping (test code = 2588) O Rh Factor (test code = 2589) POS [facility], serum, [id number] 10:56:00 Test Item Value Reference Range Interpretation Comments Preg Test, Serum (test code = Negative 0-5) [facility], SERUM, [id number] 10:56:00 Test Item Value Reference Range Interpretation Comments TEST SERUM (BEAKER) (test Negative code = 584) Type and screen, [id number] 15:59:00 Test Item Value Reference Range Interpretation Comments ABO/RH AUTOMATED (AKER) (test O POSITIVE code = 2260) Ab Scrn (test code = 890-4) NEGATIVE [facility] ValleyUrinalysis without [id number] 15:39:00 Test Item Value Reference Range Interpretation Comments Color, UA (test code = 5778-6) Yellow Clarity, UA (test code = 5767-9) Hazy Specific [place], UA (test code = 1.025 1.001-1.035 5811-5) pH, UA (test code = 5803-2) 6.0 5.0-8.0 Protein, UA (test code = 27978-7) Negative Negative Glucose, UA (test code = 365) Negative Negative Ketones, UA (test code = 2514-8) Negative Negative Bilirubin, UA (test code = 69690-6) Negative Negative Blood, UA (test code = 98827-3) Large Negative A Nitrite, UA (test code = 5802-4) Negative Negative Leukocytes, UA (test code = 5799-2) Negative Negative Urobilinogen, UA (test code = 0.2 mg/dL 0.2-1 04548-8) Specimen Source (test code = 2795) Lab Interpretation (test code = Abnormal 72264-0) [facility] [id number] 15:39:00 Test Item Value Reference Range Interpretation Comments COLOR (BEAKER) (test code = 470) Yellow CLARITY (BEAKER) (test code = 469) Hazy SPECIFIC GRAVITY UA (BEAKER) (test 1.025 1.001-1.035 code = 468) PH UA (BEAKER) (test code = 467) 6.0 5.0-8.0 PROTEIN UA (BEAKER) (test code = Negative Negative 464) GLUCOSE UA (BEAKER) (test code = Negative Negative 365) KETONES UA (BEAKER) (test code = Negative Negative 371) BILIRUBIN UA (BEAKER) (test code = Negative Negative 462) BLOOD UA (BEAKER) (test code = 461) Large Negative A NITRITE UA (BEAKER) (test code = Negative Negative 465) LEUKOCYTE ESTERASE UA (BEAKER) Negative Negative (test code = 466) UROBILINOGEN UA (BEAKER) (test code 0.2 mg/dL 0.2-1.0 = 463) SOURCE(BEAKER) (test code = 2795) COMPREHENSIVE METABOLIC [id number] 15:34:00 Test Item Value Reference Range Interpretation Comments TOTAL PROTEIN 6.8 gm/dL 6.0-8.5 (BEAKER) (test code = 770) ALBUMIN (BEAKER) 4.1 g/dL 3.5-5.0 (test code = 1145) ALKALINE PHOSPHATASE 54 U/L 30-115 (BEAKER) (test code = 346) BILIRUBIN TOTAL 0.3 mg/dL 0.1-1.2 (BEAKER) (test code = 377) SODIUM (BEAKER) (test 140 meq/L 135-148 code = 381) POTASSIUM (BEAKER) 3.7 meq/L 3.6-5.5 (test code = 379) CHLORIDE (BEAKER) 104 meq/L 98-106 (test code = 382) CO2 (BEAKER) (test 28 meq/L 20-29 code = 355) BLOOD UREA NITROGEN 10 mg/dL 10-26 (BEAKER) (test code = 354) CREATININE (BEAKER) 0.73 mg/dL 0.50-1.20 (test code = 358) GLUCOSE RANDOM 114 mg/dL 70-110 H (BEAKER) (test code = 652) CALCIUM (BEAKER) 8.8 mg/dL 8.5-10.5 (test code = 697) AST (SGOT) (BEAKER) 17 U/L 5-40 (test code = 353) ALT (SGPT) (BEAKER) 12 U/L 5-50 (test code = 347) EGFR (BEAKER) (test 87 mL/min/1.73 ESTIMA SONIA GFR IS code = 1092) sq m NOT ACCURATE CREATININE CLEARANCE IN PREDICTING GLOMERULAR FILTRATION RATE . ESTIMATED GFR I S NOT APPLICABLE FOR DIALYSIS PATIEN TS. [employer] Design Engineer ID - [id number] (Hemogram only)2019-11-11 15:13:00 Test Item Value Reference Range Interpretation Comments WBC (test code = 6690-2) 9.2 4.0- 10.0 K/L RBC (test code = 789-8) 3.82 4.00- 5.00 M/L L MCHC (test code = 786-4) 32.8 32.0- 36.0 GM/DL Hematocrit (test code = 4544-3) 37.8 % 36-46 MCV (test code = 787-2) 99.0 fL 82-99 MCH (test code = 785-6) 32.5 pg 27-33 RDW (test code = 788-0) 14.3 % 12-15 Platelets (test code = 777-3) 314 150- 430 K/CU MM MPV (test code = 19283-3) 9.0 fL 6-11.5 nRBC (test code = 413) 0 0- 0 /100 WBC Lab Interpretation (test code = Abnormal 63645-1) [facility]2019-11-11 15:13:00 Test Item Value Reference Range Interpretation Comments WHITE BLOOD CELL COUNT (BEAKER) 9.2 K/ L 4.0-10.0 (test code = 775) RED BLOOD CELL COUNT (BEAKER) 3.82 M/ L 4.00-5.00 L (test code = 761) HEMOGLOBIN (BEAKER) (test code = 12.4 GM/DL 12.0-15.5 410) HEMATOCRIT (BEAKER) (test code = 37.8 % 36.0-46.0 411) MEAN CORPUSCULAR VOLUME (BEAKER) 99.0 fL 82.0-99.0 (test code = 753) MEAN CORPUSCULAR HEMOGLOBIN 32.5 pg 27.0-33.0 (BEAKER) (test code = 751) MEAN CORPUSCULAR HEMOGLOBIN CONC 32.8 GM/DL 32.0-36.0 (BEAKER) (test code = 752) RED CELL DISTRIBUTION WIDTH 14.3 % 12.0-15.0 (BEAKER) (test code = 412) PLATELET COUNT (BEAKER) (test 314 K/CU MM 150-430 code = 756) MEAN PLATELET VOLUME (BEAKER) 9.0 fL 6.0-11.5 (test code = 754) NUCLEATED RED BLOOD CELLS 0 /100 WBC 0-0 (BEAKER) (test code = 413) RAD, CHEST, 2 [id number] 15:11:00Reason for exam:->preopIs the patient ?->UnknownFINAL REPORT Chest, two views History: Preoperative assessment Comparison: none Findings:Clear lungs. Normal size heart. No pleural effusion or pneumothorax. Impression:No significant findings in the chest Signed: Howard Hodge Verified Date/Time: 11/11/2019 15:11:05 Reading Location: [facility] Diagnostic Imaging Reading Room - [place] [address] XR chest 2 [id number] 15:11:00Interface, External Ris In - 11/11/2019 3:13 PM CDTFINAL REPORT Chest, two views History: Preoperative assessment Comparison: none Findings:Clear lungs. Normal size heart. No pleural effusion or pneumothorax. Impression:No significant findings in the chest Signed: Howard Hodge Verified Date/Time: 11/11/2019 15:11:05 Reading Location: [facility] Diagnostic Imaging Reading Room - [place] [address] [facility]- CT ABD PELVIS W WO [id number] 12:18:00Patient Name: APPLE RADFORD Unit No: [id number] EXAMS: CPT CODE: [id number] CT ABD PELVIS W [place] CONT [address]78 CT OF THE ABDOMEN AND PELVIS WITH and WITHOUT CONTRAST Location: A1 CLINICAL HISTORY:PELVIC MASS COMPARISON: Correlation with pelvic ultrasound from 10/31/2019 TECHNIQUE:Multiple transaxial images of the abdomen and pelvis were obtained before and after 100 mL of Isovue 300 contrast and oral contrast. Coronal andsagittal reformatted images were obtained. One or more of the following dose reduction techniques were used: Automated exposure control, adjustment of the mA and/or kV according to patient size, and/or utilization of iterative reconstruction technique. DLP: 1917 mGy-cm. FINDINGS: Abdomen Bilateral breast prosthetics are visualized. The visualized intrathoracic contents are otherwise within normal limits. There is mild fatty infiltration of the liver. Tiny cystic lesion is identified within the right hepatic lobe, too small to characterize but favored to represent a simple cyst. No further intrahepatic lesions are seen. The spleen, pancreas, gallbladder, adrenal glands and kidneys are within normal limits. There is no hydronephrosis or hydroureter. Unopacified loops of large and small bowel are within normal limits. There is no evidence for obstruction or abnormal mural thickening. Normal caliber appendix is seen in the right lower quadrant. There is no mesenteric or retroperitoneal lymphadenopathy. There is no free intraperitoneal air or fluid. Visualized abdominal aorta is within normal limits. FINDINGS: Pelvis There is large cystic lesion in the left adnexa measuring 9.0 x 12.9 x 12.8 cm with small internal septations. There is mass effect on the dome of the bladder. This lesion demonstrates simple internal fluid attenuation. The right ovary is otherwise within normal limits. The uterus is unremarkable. There are likelynabothian cysts at the cervix. There is small free pelvic fluid. Few scattered lymph nodes are identified within the pelvis and inguinal region which are nonpathologic by imaging criteria. Name: APPLE RADFORD [facility] Phys: KATYA. - JalenGeraldonirav Fried [address] : 1975 Age: 44 Sex:[place] [id number] Loc: [place].CTSII Exam Date: 11/07/2019 Status: REG CLI PH: FAX: PAGE 1 Signed Report (CONTINUED) Patient Name: APPLE RADFORD Unit No: [id number] EXAMS: CPT CODE: [id number] CT ABD PELVIS W WO CONT [address]75 <Continued>Visualized skeletal structures are within normal limits. IMPRESSION: 1. Large cystic lesion with few internal septations most likely arising from the left ovary measuring up to 12.9 cm. No further solid components are seen. Given size, consider surgical consultation. 2. There is small free pelvic fluid which may be physiologic. 3. No adenopathy. 4. Mild fatty infiltration of the liver. Please correlate with hepatic profile. at 1218 Reported and signed by: Anjum Awad MD CC: Self Referred; Geraldo Rao MD Technologist: Michelle Rasmussen CTDI: 16.52 DLP: 1917 Trscr Dt/Tm: 11/07/2019 (1218) by:[email or web address] Electronic Signature D ate/Time: 11/07/2019 (1218)Orig Print D/T: S: 11/07/2019 (1221) Name: APPLE RADFORD [facility] [place] Phys: [email or web address] - Geraldo Ra[address] : 1975 Age: 44 [place]: [place] [address] Loc: PA.CTSII Exam Date: 11/07/2019 Status: REG CLI PH: FAX: PAGE 2 Signed Report- US PELVIC [id number] 11:07:00Patient Name: APPLE RADFORD Unit No: [id number] EXAMS: CPT CODE: [id number] US PELVIC COMPLETE [address] CLINICAL HISTORY: PAIN. LOCATION: A1 FINDINGS: Real-time grayscale sonographic evaluation is performed of the pelvis using transabdominal and transvaginal technique. No comparison studies. The transabdominal portion of the exam demonstrates the uterus to measure 8.6 cm sagittal x 5.1 cm AP x 5.9 cm transverse. The transvaginal portion of the exam demonstrates normal uterine echotexture. The endometrium measures 8 mm in width. There is a cystic lesion at the right adnexal region measuring 12.6 cm x 8.7 cm x 9.1 cm. The right and left ovaries are not discretely identified. No free fluid noted. IMPRESSION: 1. There is a 12.6 cm cystic lesion at the right adnexal region. CT abdomen/pelvis with oral and intravenous contrast may be beneficial for further evaluation. at 1107 Reported and signed by: Shawn Goel MD CC: Geraldo Rao MD Technologist: Aaron Justice Probe: [id number] Trscr Dt/Tm: 10/31/2019 (1107) by:[email or web address] ElectronicSignature Date/Time: 10/31/2019 (1107)Orig Print D/T: S: 10/31/2019 (1110) Name: PRABHAKARAPPLEHelene GARCIA [facility] [place] Phys: KATYA. Jluio Rao [address] : 1975 Age: 44 Sex: [place] [id number] Loc: NC.USNII Exam Date: 10/31/2019 Status: REG CLI PH: FAX: PAGE 1 Signed Report
[2020-01-18] MEDS ORDERED: dexAMETHasone 10 MG/ML VIAL ONE (09:23)
[2020-01-18] MEDS ORDERED: CYCLOBENZAPRINE 10 MG TAB ONE (09:41)
--- NOTE | 2020-01-18 10:13 | RAD REPORT ---
EXAM DESCRIPTION: CT - C Spine Wo Con - 01/18/2020 9:44 am COMPARISON: None. TECHNIQUE: Axial 2 mm thick images of the cervical spine were obtained with sagittal and coronal rec onstruction images generated and reviewed. All CT scans are performed using dose optimization technique as appropriate and may include automated exposure control or mA/KV adjustment according to patient size. FINDINGS: Cervical body height and alignment are normal. No disk space narrowing. No fracture or acu te bony abnormality. Minimal anterior endplate spurring at C4-5 and C5-6. Patient has advanced for ag e degenerative change at the left facet joint C5-6. This contributes to mild left foraminal encroachm ent. No paraspinal mass or hematoma. No gross evidence for a large disc herniation. Central canal detail is significantly limited on CT im aging. IMPRESSION: No fracture or acute bone finding identified. Patient has advanced for age facet joint d egenerative change on the left at C5-6. No gross evidence for disc herniation. Central canal detail is limited.
--- NOTE | 2020-01-18 10:32 | EDPHYS ---
Physician Documentation [facility] Name: Magdalena Olguin Age: 44 yrs Sex: Female : 1975 Arrival Date: 01/18/2020 Time: 08:45 Bed 3 Private MD: None, None ED Physician Steven Perez HPI: 01/17 10:26 This 44 yrs old Female presents to ER via Ambulatory with complaints of Stiff rn Neck, Arm Pain. 10:26 The patient or guardian complains of pain. The symptoms are located diffusely. Onset: rn The symptoms/episode began/occurred 2 week(s) ago. Context: The problem was sustained at an unknown location. The pain radiates to the right arm. Modifying factors: The symptoms are alleviated by nothing. the symptoms are aggravated by movement. Severity of symptoms: At their worst the symptoms were moderate, in the emergency department the symptoms are unchanged. The patient has not experienced similar symptoms in the past. Reports neck pain, radiating down right arm with numbness and tingling, going on for 2 weeks, no trauma, has been doing weight lifting exercises, and feels like she also injured right rotator cuff. No focal neurological complaints otherwise. No headache, no fever, no chest pain. . Historical: - Allergies: 08:57 Ibuprofen; ss 08:57 NSAIDS; ss - PMHx: 08:57 GERD; ss - PSHx: 08:57 tumor removed from stomach; breast augmentation; ss - Immunization history:: Adult Immunizations up to date. - Social history:: Smoking status: Patient denies any tobacco usage or history of. - Family history:: not pertinent. - Hospitalizations: : No recent hospitalization is reported. ROS: 10:26 Constitutional: Negative for fever, chills, and weight loss, Eyes: Negative for injury, rn pain, redness, and discharge, Neck: + neck pain Cardiovascular: Negative for chest pain, palpitations, and edema, Respiratory: Negative for shortness of breath, cough, wheezing, and pleuritic chest pain, Abdomen/GI: Negative for abdominal pain, nausea, vomiting, diarrhea, and constipation, Back: Negative for injury and pain, MS/Extremity: + tingling RUE Neuro: Negative for headache, and seizure. Exam: 10:26 Constitutional: This is a well developed, well nourished patient who is awake, alert, rn and in no acute distress. Ambulatory to room. Neck: Trachea midline, no masses palpated, and no cervical lymphadenopathy. No vertebral point tenderness. No Meningismus. Cardiovascular: Regular rate and rhythm. No pulse deficits. Respiratory: Speaking full sentences, unlabored breathing. Skin: Warm, dry MS/ Extremity: Pulses equal, no cyanosis. Decreased sensation digits 1-3 right hand, painful rotation right shoulder. Neuro: Awake and alert, GCS 15, oriented to person, place, time, and situation. Cranial nerves II-XII grossly intact. Cerebellar exam normal. Normal gait. Vital Signs: 08:53 BP 115 / 73; Pulse 89; Resp 16; Temp 98.9(TE); Pulse Ox 100% on R/A; Weight 58.51 kg ss (M); Height 5 ft. 3 in. (160.02 cm); Pain 02/20; 08:53 Body Mass Index 22.85 (58.51 kg, 160.02 cm) ss MDM: 08:58 Patient medically screened. rn 10:26 Differential diagnosis: Cervical Disc Herniation Cervical Discogenic Pain Cervical rn Facet Syndrome Cervical Raiculopathy Cervical Spondylosis cervical strain, Osteoarthritis torticollis, rotator cuff injury, radiculopathy. Data reviewed: vital signs, nurses notes, radiologic studies, CT scan, and as a result, I will discharge patient. Counseling: I had a detailed discussion with the patient and/or guardian regarding: the historical points, exam findings, and any diagnostic results supporting the discharge/admit diagnosis, radiology results, the need for outpatient follow up, to return to the emergency department if symptoms worsen or persist or if there are any questions or concerns that arise at home. Special discussion: I discussed with the patient/guardian in detail that at this point there is no indication for admission to the hospital. It is understood, however, that if the symptoms persist or worsen the patient needs to return immediately for re-evaluation. Further emergent ED testing is not indicated at this point in time. I discussed with the patient/guardian in detail the need to arrange with the PCP or specialist further outpatient testing, MRI, Based on the history and exam findings, there is no indication for further emergent testing or inpatient evaluation. I discussed with the patient/guardian the need to see the primary care provider for further evaluation of the symptoms. ED course: No acute findings on ct cspine to indicate emergent need for MRI, has appt on Monday, recommend outpt MRI, will treat symptomatically with steroids and muscle relaxer. Return precautions given and understood.. 01/17 09:12 Order name: CT C Spine; Complete Time: 10:18 rn Administered Medications: 09:18 Drug: Decadron 10 mg Route: IM; Site: left deltoid; em 10:25 Follow up: Response: No adverse reaction em 09:50 Drug: Flexeril 10 mg Route: PO; em 10:25 Follow up: Response: No adverse reaction em Disposition: 01/18/20 10:32 Discharged to Home. Impression: Paresthesia of skin, Radiculopathy, cervical region. - Condition is Stable. - Discharge Instructions: Cervical Radiculopathy, Paresthesia. - Prescriptions for Cyclobenzaprine 10 mg Oral Tablet - take 1 tablet by ORAL route every 8 hours As needed; 20 tablet. Medrol (Leandro) 4 mg Oral Tablets, Dose Pack - take 1 tablet by ORAL route as directed - follow package instructions; 1 packet. - Medication Reconciliation Form, Thank You Letter, Antibiotic Education, Prescription Opioid Use form. - Follow up: Santino Loya MD; When: As needed; Reason: Recheck today's complaints, Re-evaluation by your physician. - Problem is an ongoing problem. - Symptoms are unchanged. Signatures: Dispatcher [employer] Satya Benitez RN RN em Nieto, Roman, MD MD rn Smirch, Shelby, RN RN Corrections: (The following items were deleted from the chart) 10:40 10:32 01/18/2020 10:32 Discharged to Home. Impression: Paresthesia of skin; em Radiculopathy, cervical region. Condition is Stable. Forms are Medication Reconciliation Form, Thank You Letter, Antibiotic Education, Prescription Opioid Use. Follow up: Santino Loya; When: As needed; Reason: Recheck today's complaints, Re-evaluation by your physician. Problem is an ongoing problem. Symptoms are unchanged. rn
--- NOTE | 2020-01-18 10:32 | ER ---
Nurse's Notes [facility] Name: Magdalena Olguin Age: 44 yrs Sex: Female : 1975 Arrival Date: 01/18/2020 Time: 08:45 Bed 3 Private MD: None, None Diagnosis: Paresthesia of skin;Radiculopathy, cervical region Presentation: 01/17 08:53 Chief complaint: Patient states: stiff neck and R arm pain x 2 weeks. Pt is concerned ss because her R thumb and third finger have decreased sensation. Coronavirus screen: Proceed with normal triage. Patient denies a cough. Patient denies shortness of breath or difficulty breathing. Patient denies measured and/or subjective temperature greater than 100.4F prior to today's visit. Patient denies travel on a cruise ship or to a country the [facility] currently lists as an affected area. Patient denies contact with known and/or suspected case of COVID-19. Prior COVID test 01/11 negative. Ebola Screen: Patient denies exposure to infectious person. Patient denies travel to an Ebola-affected area in the 21 days before illness onset. Initial Sepsis Screen: Does the patient meet any 2 criteria? No. Patient's initial sepsis screen is negative. Does the patient have a suspected source of infection? No. Patient's initial sepsis screen is negative. Risk Assessment: Do you want to hurt yourself or someone else? Patient reports no desire to harm self or others. Onset of symptoms was January 04, 2020. 08:53 Method Of Arrival: Ambulatory ss 08:53 Acuity: MICKEY 3 ss Historical: - Allergies: 08:57 Ibuprofen; ss 08:57 NSAIDS; ss - PMHx: 08:57 GERD; ss - PSHx: 08:57 tumor removed from stomach; breast augmentation; ss - Immunization history:: Adult Immunizations up to date. - Social history:: Smoking status: Patient denies any tobacco usage or history of. - Family history:: not pertinent. - Hospitalizations: : No recent hospitalization is reported. Screenin:11 Abuse screen: Denies threats or abuse. Nutritional screening: No deficits noted. em Tuberculosis screening: No symptoms or risk factors identified. Fall Risk None identified. Assessment: 09:10 General: Appears in no apparent distress. uncomfortable, Behavior is calm, cooperative, em appropriate for age. Pain: Complains of pain in anterior aspect of right shoulder and posterior aspect of right shoulder Pain radiates to right arm Pain currently is 7 out of 10 on a pain scale. Quality of pain is described as radiating, sharp, shooting. Neuro: Level of Consciousness is awake, alert, obeys commands, Oriented to person, place, time, situation, Appropriate for age Tingling in right arm Numbness in right arm. Cardiovascular: Capillary refill < 3 seconds Patient's skin is warm and dry. Respiratory: Airway is patent Respiratory effort is even, unlabored, Respiratory pattern is regular, symmetrical. GI: Abdomen is flat. Derm: Skin is intact, is healthy with good turgor, Skin is pink, warm \T\ dry. Musculoskeletal: Capillary refill < 3 seconds, Range of motion: limited in right shoulder Reports pain in right arm and neck. 09:34 Reassessment: Patient appears in no apparent distress at this time. wheeled to CT via em wheelchair. 10:30 Reassessment: Patient appears in no apparent distress at this time. Patient and/or em family updated on plan of care and expected duration. Pain level reassessed. Patient is alert, oriented x 3, equal unlabored respirations, skin warm/dry/pink. Vital Signs: 08:53 BP 115 / 73; Pulse 89; Resp 16; Temp 98.9(TE); Pulse Ox 100% on R/A; Weight 58.51 kg ss (M); Height 5 ft. 3 in. (160.02 cm); Pain 7/10; 08:53 Body Mass Index 22.85 (58.51 kg, 160.02 cm) ED Course: 08:45 Patient arrived in ED. dp 08:46 None, None is Private Physician. dp 08:56 Triage completed. ss 08:57 Arm band placed on right wrist. ss 08:58 Steven Perez MD is Attending Physician. rn 08:58 Skyler Richardson NP is PHCP. pm1 08:58 Satya Arreaga, DUY is Primary Nurse. em 09:11 Patient has correct armband on for positive identification. Bed in low position. Call em light in reach. Pulse ox on. NIBP on. 09:44 CT C Spine In Process Unspecified. EDMS 10:31 Santino Loya MD is Referral Physician. rn 10:33 No provider procedures requiring assistance completed. em 10:38 Patient did not have IV access during this emergency room visit. em Administered Medications: 09:18 Drug: Decadron 10 mg Route: IM; Site: left deltoid; em 10:25 Follow up: Response: No adverse reaction em 09:50 Drug: Flexeril 10 mg Route: PO; em 10:25 Follow up: Response: No adverse reaction em Outcome: 10:32 Discharge ordered by . rn 10:38 Discharged to home ambulatory. em 10:38 Condition: good 10:38 Discharge instructions given to patient, Instructed on discharge instructions, follow up and referral plans. no drinking with medication, no driving heavy equipment, medication usage, Demonstrated understanding of instructions, follow-up care, medications, Prescriptions given X 2. 10:40 Patient left the ED. em Signatures: Dispatcher [employer] Satya Benitez RN RN em Steven Perez MD MD rn Smirch, Shelby, RN RN ss Marinas, Patrick, MARKY [employer] pm1 Lionel Wilkinson
[2020-01-18 10:46] VITALS: BP 115/73; TEMP 98.9; O2SAT 100
== END 2020-01-18 10:40 | disposition home or self-care (01) ==
LOC: ER 08:39
DX: M54.12 Radiculopathy, cervical region (principal); Z98.82 Breast implant status; Z88.6 Allergy status to analgesic agent
CPT/HCPCS: 72125; 96372; 99284; J1100